=== PATIENT | male | born 1950 | race Caucasian/White ===

== ENCOUNTER 2018-01-10 03:19 | Inpatient (IN) | payer OTHER ==
[~2018-01-10] VITALS: Ht 170.2 cm; Wt 68.9 kg
[~2018-01-10 03:19] MED LIST: AMLODIPINE BESYL5 M1 PO; CHILDREN'S ASPI81 M1 PO; DIAZEPAM5 M1 PO; DICLOFENAC SODI75 M3 PO; FINASTERIDE5 M1 PO; IBUPROFEN800 M1 PO; KEFLEX500 MG PO; LOPRESSOR50 M1 PO; METHOCARBAMOL500 M1 PO; MULTIPLE VITAM1 EAC2 PO; OMEGA-3 FISH O1 EAC4 PO; PERCOCET 325 MG1 TAB PO; ROBAXIN500 M1 PO; TRAMADOL HCL50 M1 PO; ULTRAM50 M1 PO; VALIUM5 M2 PO; VITAMIN D2000 UNIT PO; ZOCOR20 M1 PO
--- NOTE | 2018-01-10 03:59 | ED GENERAL ADULT ---
See Addendum History of Present Illness General Chief Complaint: Upper Respiratory Sx/Fever Stated Complaint: DIFF BREATHING, COUGH FORFEW DAYS Source: patient, family Exam Limitations: no limitations, unable to give history Vital Signs & Intake/Output Vital Signs & Intake/Output Vital Signs Date Time Temp Pulse Resp B/P B/P Pulse O2 O2 Flow FiO2 Mean Ox Delivery Rate 01/10 0507 93 Nasal 2.0L Cannula 01/10 0459 96 Nasal 2.0L Cannula 01/10 0356 152/88 01/10 0351 99.9 117 18 89 Room Air Allergies Coded Allergies: No Known Allergies (01/10/18) Reconcile Medications Amlodipine Besylate 5 MG TABLET 1 TAB PO DAILY HEART/BP (Reported) Aspirin (Children's Aspirin) 81 MG TAB.CHEW 1 TAB PO DAILY HEART HEALTH ( Reported) Cholecalciferol (Vitamin D3) (Vitamin D) 2,000 UNIT CAPSULE 1 CAP PO DAILY SUPPLEMENT (Reported) Diazepam 5 MG TABLET 1 TAB PO AD PRN MUSCLE SPASMS (Reported) Finasteride 5 MG TABLET 1 TAB PO DAILY PROSTATE (Reported) Ibuprofen 800 MG TABLET 1 TAB PO TID PAIN/INFLAMMATION (Reported) Methocarbamol 500 MG TABLET 1 TAB PO TID PRN MUSCLE SPASMS (Reported) Metoprolol Tartrate (Lopressor) 50 MG TABLET 1 TAB PO BID HEART/BP (Reported) Multivitamin (Multiple Vitamins) 1 EACH TABLET 1 TAB PO DAILY VITAMIN SUPPORT (Reported) [place]-3S/Dha/Epa/Fish Oil ([place]-3 Fish Oil 1,000 MG Sfgl) 300-1,000MG CAPSULE 1 CAP PO DAILY SUPPLEMENT (Reported) Simvastatin (Zocor*) 20 MG TABLET 1 TAB PO QPM CHOLESTEROL (Reported) Tramadol HCl 50 MG TABLET 1 TAB PO AD PRN PAIN (Reported) Triage Note: TRIAGE: PATIENT TO ER FROM HOME C/O COUGH X FEW DAYS, INC W/ SOB TONIGHT. PATIENT TEMP 99.9 IN TRIAGE. REPORTS ACHING IN SHOULDER AND NECK THOUGH REPORTS "I'M SUPOSSED TO HAVE MY SHOULDERS REPLACED." PLACED ON 2LNC D/T RA O2: 89% W/ GOOD PLEATH. Triage Nurses Notes Reviewed? yes Onset: Gradual Duration: day(s): Timing: recent history Injury Environment: home Severity: moderate Modifying Factors: Improves With: rest. Associated Symptoms: cough HPI: 67 yo gentleman, long time smoker, h/o djd, presents with 3 days of cough, wheezing, phlegm, shortness of breath. No chest pain, lower extremity swelling, fever, chills. "But a lot of sputum is coming up." Past History Travel History Traveled to [place] past 21 day No Medical History Any Pertinent Medical History? 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 No Review of Systems Review of Systems Constitutional: Reports: no symptoms. EENTM: Reports: no symptoms. Respiratory: Reports: no symptoms. Cardiovascular: Reports: no symptoms. GI: Reports: no symptoms. Genitourinary: Reports: no symptoms. Musculoskeletal: Reports: no symptoms. Skin: Reports: no symptoms. Neurological/Psychological: Reports: no symptoms. Hematologic/Endocrine: Reports: no symptoms. Immunologic/Allergic: Reports: no symptoms. All Other Systems: Reviewed and Negative Physical Exam Physical Exam General Appearance: well developed/nourished, mild distress Head: atraumatic, normal appearance Eyes: Bilateral: normal appearance. Ears, Nose, Throat: normal pharynx, normal ENT inspection Neck: normal inspection, supple, full range of motion Respiratory: normal breath sounds, rhonchi, wheezing Cardiovascular: regular rate/rhythm Gastrointestinal: normal bowel sounds, soft, non-tender Back: normal inspection, normal range of motion Extremities: normal inspection, normal capillary refill, normal range of motion, no edema Neurologic/Psych: no motor/sensory deficits, awake, alert, oriented x 3 Skin: intact, normal color, warm/dry Core Measures ACS in differential dx? No CVA/TIA Diagnosis: No Sepsis Present: No Sepsis Focused Exam Completed? No Progress Differential Diagnoses I considered the following diagnoses in my evaluation of the patient: copd vs pneumonia vs influenza vs chf. Plan of Care: Orders Procedure Date/time Status Heart Healthy Diet 01/10 B Active Saline Lock 01/10 543 Active Misc Message 01/10 543 Active ED Holding Orders 01/10 543 Active Admit to inpatient 01/10 543 Active Vital Signs 01/10 543 Active Code Status 01/10 543 Active URINALYSIS 01/10 510 Active BLOOD CULTURE 01/10 410 Active BLOOD CULTURE 01/10 409 Active RAPID VIRAL INFLUENZA A 01/10 408 Complete TROPONIN LEVEL 01/10 408 Complete LIPASE 01/10 408 Complete HEPATIC FUNCTION PANEL 01/10 408 Complete D-DIMER 01/10 408 Complete CBC WITHOUT DIFFERENTIAL 01/10 408 Complete B-TYPE NATRIURETIC PEP (BNP) 01/10 408 Complete BASIC METABOLIC PANEL 01/10 408 Complete AMYLASE 01/10 408 Complete EKG 01/10 408 Active Current Medications Sig/Britney Start time Last Medication Dose Stop Time Status Admin Tramadol HCl 50 MG ONCE ONE 01/10 545 AC (Ultram) 01/10 546 Laboratory Tests 01/10/18 0511: Urine Color Pending, Urine Clarity Pending, Urine pH Pending, Ur Specific Girard Pending, Urine Protein Pending, Urine Ketones Pending, Urine Nitrite Pending, Urine Bilirubin Pending, Urine Urobilinogen Pending, Ur Leukocyte Esterase Pending, Ur Microscopic SEDIMENT EXAMINED, Urine RBC Pending, Urine Hemoglobin Pending, Urine Glucose Pending 01/10/18 0426: Anion Gap 9, Estimated GFR > 60, BUN/Creatinine Ratio 22.9, Glucose 112 H, Calcium 9.1, Total Bilirubin 0.4, Direct Bilirubin 0.3, AST 92 H, ALT 126 H, Alkaline Phosphatase 128 H, Troponin I < 0.01, Yhf-Q-Lihdametsma Pept 310 H, Total Protein 6.5, Albumin 3.5, Amylase 68, Lipase 234, D-Dimer High Sensitivty 329 H, CBC w Diff NO MAN DIFF REQ, RBC 4.76, MCV 86.8, MCH 28.4, MCHC 32.7 L, RDW 16.4 H, MPV 6.7 L, Gran % 88.0 H, Lymphocytes % 4.6 L, Monocytes % 6.6, Eosinophils % 0.7, Basophils % 0.1, Absolute Granulocytes 6.8 H, Absolute Lymphocytes 0.4 L, Absolute Monocytes 0.5, Absolute Eosinophils 0.1, Absolute Basophils 0 Microbiology 01/10 448 BLOOD: Blood Culture - RECD 01/10 430 NASOPHARYN: Influenza Virus A & B Rapid Smear - COMP 01/10 426 BLOOD: Blood Culture - RECD Diagnostic Imaging: Viewed by Me: Radiology Read. Discussed w/RAD: Radiology Read. CXR Impression: PATIENT: JOSUE STEWARD PRESENT AGE: 67 PATIENT ACCOUNT NO: [id number] : 48 LOCATION: [facility] [place] ORDERING PHYSICIAN: Shahzad Elizabeth MD SERVICE DATE: 01/10/18 EXAM TYPE: RAD - XRY- PORTABLE CHEST XRAY EXAMINATION: XR PORTABLE CHEST CLINICAL INFORMATION: Dyspnea COMPARISON: 07/31/2017 TECHNIQUE: Portable frontal view of the chest was obtained. FINDINGS: Lung volumes are symmetric. There is subtle hazy opacity at the right lung base which appears new from prior. No left lung consolidation is seen. No evidence of pneumothorax, pleural effusion, or pulmonary edema. The cardiomediastinal contour is unremarkable. Bilateral humeral head anchors are noted. Fusion hardware is present in the upper thoracic spine. IMPRESSION: Subtle hazy right basilar opacity may reflect developing consolidation. Consider short-term radiographic follow-up. DICTATED BY: Branden Bowman MD DATE/TIME DICTATED:01/10/18446 HATCHERY EMPLOYEE:NICHOLAS DATE/TIME TRANSCRIBED:446 CONFIDENTIAL, DO NOT COPY WITHOUT APPROPRIATE AUTHORIZATION. < Electronically signed in Other Vendor System> SIGNED BY: Branden Bowman MD 01/10/18452 Initial ED EKG: sinus tach, rbbb, no acute change from prior. Departure Departure Disposition: STILL A PATIENT Condition: Stable Clinical Impression Primary Impression: Pneumonia Secondary Impressions: Sepsis Referrals: Wayne GONZALES,Rinku Morrissey (PCP/Family) Departure Forms: Customer Survey General Discharge Information Admission Note Spoke With: Aki Fletcher MD Documentation of Exam: Documentation of any treatments & extenuating circumstances including Concerns Regarding Discharge (functional status, medication knowledge or non-compliance, living conditions, etc.) that warrant an admission rather than observation: Pt with hypoxia to 89%, wheezing, dyspneic on exam, evidence of pneumonia on cxr , with negative trop and dimer... pt merits 02 support, iv abx, serial nebs. would consider pulm consult. Critical Care Note Critical Care Note Critical Care Time: 30-74 min
[2018-01-10 04:44] LABS: ABSOLUTE BASOPHIL COUNT 0 /CUMM (0.0-0.2); ABSOLUTE EOSINOPHIL COUNT 0.1 /CUMM (0.0-0.7); ABSOLUTE GRANULOCYTE CT 6.8 /CUMM (1.4-6.5); ABSOLUTE LYMPH COUNT 0.4 /CUMM (1.2-3.4); ABSOLUTE MONOCYTE COUNT 0.5 /CUMM (0.10-0.60); BASOPHIL % 0.1 % (0.0-2.0); EOSINOPHIL % 0.7 % (0-5); HEMATOCRIT 41.3 % (42-52); MEAN CORPUSCULAR HGB 28.4 PG (27.0-31.0); MEAN CORPUSCULAR HGB CONC 32.7 G/DL (33.0-37.0); MEAN CORPUSCULAR VOLUME 86.8 FL (80.0-94.0); MEAN PLATELET VOLUME 6.7 FL (7.4-10.4); RBC DISTRIBUTION WIDTH 16.4 % (11.5-14.5); RED BLOOD CELL CT 4.76 /CUMM (4.70-6.10); WHITE BLOOD CELL COUNT 7.7 /CUMM (4.8-10.8)
--- NOTE | 2018-01-10 04:53 | RADIOLOGY REPORT ---
EXAMINATION: XR PORTABLE CHEST CLINICAL INFORMATION: Dyspnea COMPARISON: 07/31/2017 TECHNIQUE: Portable frontal view of the chest was obtained. FINDINGS: Lung volumes are symmetric. There is subtle hazy opacity at the right lung base which appears new from prior. No left lung consolidation is seen. No evidence of pneumothorax, pleural effusion, or pulmonary edema. The cardiomediastinal contour is unremarkable. Bilateral humeral head anchors are noted. Fusion hardware is present in the upper thoracic spine. IMPRESSION: Subtle hazy right basilar opacity may reflect developing consolidation. Consider short-term radiographic follow-up.
[2018-01-10 05:05] LABS: PLATELET COUNT 343 /CUMM (130-400)
--- NOTE | 2018-01-10 07:33 | History & Physical ---
Ashley GONZALES,[facility] 01/10/18 0733: General Information and HPI MD Statement: I have seen and personally examined JOSUE DALAL and documented this H&P. The patient is a 67 year old M who presented with a patient stated chief complaint of [SEVERE COUGH]. Source of Information: patient, family, old records Exam Limitations: no limitations History of Present Illness: Mr. Dalal 67 year old male with past medical history significant for smoking 50 PPD, hypertension, hyperlipidemia, carotid artery disease no previous stents, multiple vertebral disc herniation status post laminectomies, osteoarthritis who presented to ED early this morning chief complaint of severe of cough. History was obtained from the patient and at bedside. He reported history of productive cough "nasty cough" for the last couple of days, sputum is clear to yellow, early this morning he had severe cough and couldn't sleep, his brought him to ED for evaluation. Patient reported shortness of breath on exertion however was not the main reason for him visiting the ED. Denied any symptoms of URI except chronic nasal congestion. Denied chest pain, palpitation, abdominal pain, nausea, vomiting, diarrhea or constipation, fever or chills, weakness or body ache, orthopnea or paroxysmal nocturnal dyspnea. Denied any dizziness, blurred vision, lower extremity swelling. reported history of whight loss, and choking while eating. Patient has no history of sick contact. He received flu vaccine and questionable pneumonia vaccine. Patient and his are smoker all of their life, they tried quit smoking multiple times before but never successful. Denied any alcohol consumption or drug illicit. He only follow with primary care physician and orthopedic surgeon for osteoarthritis. Allergies/Medications Allergies: Coded Allergies: No Known Allergies (01/10/18) Home Med list Amlodipine Besylate 5 MG TABLET 1 TAB PO DAILY HEART/BP (Reported) Aspirin (Children's Aspirin) 81 MG TAB.CHEW 1 TAB PO DAILY HEART HEALTH ( Reported) Cholecalciferol (Vitamin D3) (Vitamin D) 2,000 UNIT CAPSULE 1 CAP PO DAILY SUPPLEMENT (Reported) Diazepam 5 MG TABLET 1 TAB PO AD PRN MUSCLE SPASMS (Reported) Finasteride 5 MG TABLET 1 TAB PO DAILY PROSTATE (Reported) Ibuprofen 800 MG TABLET 1 TAB PO TID PAIN/INFLAMMATION (Reported) Methocarbamol 500 MG TABLET 1 TAB PO TID PRN MUSCLE SPASMS (Reported) Metoprolol Tartrate (Lopressor) 50 MG TABLET 1 TAB PO BID HEART/BP (Reported) Multivitamin (Multiple Vitamins) 1 EACH TABLET 1 TAB PO DAILY VITAMIN SUPPORT (Reported) [place]-3S/Dha/Epa/Fish Oil ([place]-3 Fish Oil 1,000 MG Sfgl) 300-1,000MG CAPSULE 1 CAP PO DAILY SUPPLEMENT (Reported) Simvastatin (Zocor*) 20 MG TABLET 1 TAB PO QPM CHOLESTEROL (Reported) Tramadol HCl 50 MG TABLET 1 TAB PO AD PRN PAIN (Reported) Past History Travel History Traveled to [place] past 21 day No Medical History Neurological: NONE EENT: 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 EENTM: Reports: nasal congestion. Denies: blurred vision, nasal pain. Cardiovascular: Denies: chest pain. Respiratory: Reports: cough, short of breath, sputum production. Denies: orthopnea. GI: Denies: abdominal pain, constipation. Genitourinary: Denies: hematuria. Musculoskeletal: Denies: joint swelling. Exam & Diagnostic Data Last 24 Hrs of Vital Signs/I&O Vital Signs Date Time Temp Pulse Resp B/P B/P Pulse O2 O2 Flow FiO2 Mean Ox Delivery Rate 01/10 0640 99.4 110 20 125/61 92 Nasal 3.0L Cannula 01/10 0507 93 Nasal 2.0L Cannula 01/10 0459 96 Nasal 2.0L Cannula 01/10 0356 152/88 01/10 0351 99.9 117 18 89 Room Air Intake & Output 01/10 1600 01/10 0800 01/10 0000 Intake Total 250 Output Total 500 Balance -250 Intake, IV 250 Output, Urine 500 Patient 68.946 kg Weight Weight Reported by Patient Measurement Method Physical Exam General Appearance Alert, Oriented X3, Cooperative, No Acute Distress Skin No Rashes, No Breakdown Skin Temp/Moisture Exam: Warm/Dry HEENT Atraumatic, PERRLA, EOMI, Mucous Membr. 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 Last 24 Hrs of Labs/Butch: Laboratory Tests 01/10/18 0511: Methadone Screen Pending, Barbiturate Screen Pending, Ur Phencyclidine Scrn Pending, Amphetamines Screen Pending, U Benzodiazepines Scrn Pending, Urine Cocaine Screen Pending, Urine Cannabis Screen Pending, Urinalysis LIGHT H, Urine Color STRAW, Urine Clarity CLEAR, Urine pH 6.5, Ur Specific [place] 1.020, Urine Protein NEG, Urine Ketones NEG, Urine Nitrite NEG, Urine Bilirubin NEG, Urine Urobilinogen 0.2, Ur Leukocyte Esterase TRACE H, Ur Microscopic SEDIMENT EXAMINED, Urine RBC 5-10 H, Urine WBC 1-3 H, Ur Epithelial Cells RARE, Urine Mucus FEW, Urine Hemoglobin SMALL H, Urine Glucose NEG 01/10/18 0426: Anion Gap 9, Estimated GFR > 60, BUN/Creatinine Ratio 22.9, Glucose 112 H, Calcium 9.1, Total Bilirubin 0.4, Direct Bilirubin 0.3, GGT Pending, AST 92 H, ALT 126 H, Alkaline Phosphatase 128 H, Troponin I < 0.01, Vth-F-Qqddsrydnos Pept 310 H, Total Protein 6.5, Albumin 3.5, Amylase 68, Lipase 234, TSH Pending , Free T4 Pending, PT Pending, INR Pending, APTT Pending, D-Dimer High Sensitivty 329 H, CBC w Diff NO MAN DIFF REQ, RBC 4.76, MCV 86.8, MCH 28.4, MCHC 32.7 L, RDW 16.4 H, MPV 6.7 L, Gran % 88.0 H, Lymphocytes % 4.6 L, Monocytes % 6.6, Eosinophils % 0.7, Basophils % 0.1, Absolute Granulocytes 6.8 H, Absolute Lymphocytes 0.4 L, Absolute Monocytes 0.5, Absolute Eosinophils 0.1 , Absolute Basophils 0, Hepatitis A IgM Ab Pending, Hep Bs Antigen Pending, Hep B Core IgM Ab Conf Pending, Hepatitis C Antibody Pending, HIV 1&2 Ab Western Blot Pending Microbiology 01/10 448 BLOOD: Blood Culture - RECD 01/10 430 NASOPHARYN: Influenza Virus A & B Rapid Smear - COMP 01/10 426 BLOOD: Blood Culture - RECD Diagnostic Data CXR Results IMPRESSION: Subtle hazy right basilar opacity may reflect developing consolidation. Consider short-term radiographic follow-up. Assessment/Plan Assessment: Mr. Dalal 67 year old male with past medical history significant for smoking 50 PPD, hypertension, hyperlipidemia, carotid artery disease no previous stents, multiple vertebral disc herniation status post laminectomies, osteoarthritis who presented to ED early this morning chief complaint of severe of cough. On admission temperature 99.9, pulse 117 regular, respiratory rate 18 saturating 98% on room air, blood pressure 152/88 Patient was found tachycardia and low 110s. The satting on 2 L oxygen 218 9, oxygen supplementation increased to 4 L and he continued to sat in low 90s. Patient age adjusted d-dimer is 690, obtain d-dimer is 329 Problem list -Acute hypoxic respiratory failure -Community-acquired pneumonia versus aspiration pneumonia: Given history of choking with food, and the consolidation on the base of right lung, is suspicious of aspiration pneumonia. Patient received ceftraxone and azithromycin -New onset COPD -Transaminitis -Tachycardia with persistent desaturation however negative d-dimer for age adjusted -Smoking history Plan -Admit to general medical floor -Oxygen supplementation to keep saturation above 92% -TRC -Pulmonary consultation -Given long history of smoking, never had CT chest before and with history of weight loss, consider obtain CTA to rule out PE despite negative d-dimer for persistent desaturation and tachycardia and to evaluate for any possible lung mass -Antibiotic coverage Unasyn for aspiration pneumonia -Follow-up blood culture and sputum culture -Urine Streptococcus antigen and Legionella antigen -Consider obtaining CT abdomen and pelvis with IV contrast to rule out any intra -abdominal pathology -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 COPD exacerbation 2. Pneumonia Core Measures/Misc (08/15) Acute Coronary Syndrome ACS Diagnosis: No Congestive Heart Failure Congestive Heart Failure Diagnosis No Cerebrovascular Accident CVA/TIA Diagnosis: No VTE (View Protocol) VTE Risk Factors Age>40 No Mechanical VTE Prophylaxis d/t N/A MechProphylax Ordered No VTE Pharm Prophylaxis d/t NA PharmProphylax ordered Sepsis (View protocol) Sepsis Present: No David GONZALES,[facility] 01/10/18 1106: Attending MD Review Statement Attending Statement Attending MD Statement: examined this patient, discuss w/resident/PA/MULTIMEDIA COORDINATOR, agreed w/resident/PA/MULTIMEDIA COORDINATOR, reviewed EMR data (avail), discussed with nursing, discussed with case mgmt, reviewed images, amended to note Attending Assessment/Plan: 67 y/o M chronic smoker with other pmh sig for hypertension, hyperlipidemia, carotid artery disease no previous stents, multiple vertebral disc herniation status post laminectomies, osteoarthritis, presented with very bad nasty cough. He has these symptoms from last 3 or 4 days. The cough is so severe to the point that he's not able to sleep. He gets short of breath because of this nasty cough. He produces whitish to yellowish sputum. He denies any chest pain. He also noted a few episodes of choking with solid food. He says that is only once a via not a lot. He denied any fevers or chills. He denies any sore throat as such. Vital Signs Date Time Temp Pulse Resp B/P B/P Pulse O2 O2 Flow FiO2 Mean Ox Delivery Rate 01/10 1026 97.8 93 20 135/71 92 01/10 1025 98.7 103 20 140/65 01/10 1025 98.7 103 20 140/65 01/10 0835 93 Nasal 4.0L Cannula 01/10 0814 98.7 103 20 140/65 90 Nasal 4.0L Cannula 01/10 0640 99.4 110 20 125/61 92 Nasal 3.0L Cannula 01/10 0507 93 Nasal 2.0L Cannula 01/10 0459 96 Nasal 2.0L Cannula 01/10 0356 152/88 01/10 0351 99.9 117 18 89 Room Air on exam; aox3, nad. cv; s1,s2 rrr resp; + mild crackles b/l bases. abd; soft, nt, bs+ ext; no edema Laboratory Tests 01/10 01/10 0511 0426 Chemistry Sodium (137 - 145 mmol/L) 139 Potassium (3.5 - 5.1 mmol/L) 4.4 Chloride (98 - 107 mmol/L) 102 Carbon Dioxide (22 - 30 mmol/L) 28 Anion Gap (5 - 16) 9 BUN (9 - 20 mg/dL) 16 Creatinine (0.7 - 1.2 mg/dL) 0.7 Estimated GFR (>60 ml/min) > 60 BUN/Creatinine Ratio (7 - 25 %) 22.9 Glucose (65 - 99 mg/dL) 112 H Calcium (8.4 - 10.2 mg/dL) 9.1 Total Bilirubin (0.2 - 1.3 mg/dL) 0.4 Direct Bilirubin (< 0.4 mg/dL) 0.3 GGT (15 - 73 U/L) Pending AST (17 - 59 U/L) 92 H ALT (21 - 72 U/L) 126 H Alkaline Phosphatase (< 127 U/L) 128 H Troponin I (<0.11 ng/ml) < 0.01 Qek-B-Nvspwhuhzlf Pept (<125 pg/mL) 310 H Total Protein (6.3 - 8.2 g/dL) 6.5 Albumin (3.5 - 5.0 g/dL) 3.5 Amylase (30 - 110 U/L) 68 Lipase (23 - 300 U/L) 234 TSH (0.270 - 4.200 uIU/mL) Pending Free T4 (0.78 - 2.44 ng/dL) Pending Coagulation PT (9.4 - 12.5 SEC) 11.2 INR (0.90 - 1.17) 1.07 APTT (25 - 37 SEC) 28 D-Dimer High Sensitivty (0 - 243 ng/ml) 329 H Hematology CBC w Diff NO MAN DIFF REQ WBC (4.8 - 10.8 /CUMM) 7.7 RBC (4.70 - 6.10 /CUMM) 4.76 Hgb (14.0 - 18.0 G/DL) 13.5 L Hct (42 - 52 %) 41.3 L MCV (80.0 - 94.0 FL) 86.8 MCH (27.0 - 31.0 PG) 28.4 MCHC (33.0 - 37.0 G/DL) 32.7 L RDW (11.5 - 14.5 %) 16.4 H Plt Count (130 - 400 /CUMM) 343 MPV (7.4 - 10.4 FL) 6.7 L Gran % (42.2 - 75.2 %) 88.0 H Lymphocytes % (20.5 - 51.1 %) 4.6 L Monocytes % (1.7 - 9.3 %) 6.6 Eosinophils % (0 - 5 %) 0.7 Basophils % (0.0 - 2.0 %) 0.1 Absolute Granulocytes (1.4 - 6.5 /CUMM) 6.8 H Absolute Lymphocytes (1.2 - 3.4 /CUMM) 0.4 L Absolute Monocytes (0.10 - 0.60 /CUMM) 0.5 Absolute Eosinophils (0.0 - 0.7 /CUMM) 0.1 Absolute Basophils (0.0 - 0.2 /CUMM) 0 Serology Hepatitis A IgM Ab (NONREACTIVE) NONREACTIVE Hep Bs Antigen (NONREACTIVE) NONREACTIVE Hep B Core IgM Ab Conf (NONREACTIVE) NONREACTIVE Hepatitis C Antibody (NONREACTIVE) NONREACTIVE HIV 1&2 Ab Western Blot (NONREACTIVE) NONREACTIVE Toxicology Urine Opiates Screen (>2000 NG/ML) < 100.00 Methadone Screen (>300 NG/ML) < 40 Barbiturate Screen (>200 NG/ML) < 60 Ur Phencyclidine Scrn (>25 NG/ML) 9.70 Amphetamines Screen (>1000 NG/ML) < 100 U Benzodiazepines Scrn (>200 NG/ML) > 800 H Urine Cocaine Screen (>300 NG/ML) < 50 Urine Cannabis Screen (>50 NG/ML) 22.90 Urines Urinalysis LIGHT H Urine Color (YEL,AMB,STR) STRAW Urine Clarity (CLEAR) CLEAR Urine pH (5.0 - 8.0) 6.5 Ur Specific [place] (1.001 - 1.035) 1.020 Urine Protein (NEG,<30 MG/DL) NEG Urine Ketones (NEG) NEG Urine Nitrite (NEG) NEG Urine Bilirubin (NEG) NEG Urine Urobilinogen (0.1 - 1.0 EU/dl) 0.2 Ur Leukocyte Esterase (NEG) TRACE H Ur Microscopic SEDIMENT EXAMINED Urine RBC (0 - 5 /HPF) 5-10 H Urine WBC (0 - 2 /HPF) 1-3 H Ur Epithelial Cells (NONE,FEW) RARE Urine Mucus (FEW,NONE) FEW Urine Hemoglobin (NEG) SMALL H Urine Glucose (N MG/DL) NEG CXR: IMPRESSION: Subtle hazy right basilar opacity may reflect developing consolidation. Consider short-term radiographic follow-up. CTA chest/CT abd/Pelvis IMPRESSION: 1. No evidence of pulmonary embolism. 2. Moderate pulmonary emphysema. Bronchial wall thickening in both lungs could reflect presence of active bronchitis, if in the right clinical context. Atelectasis observed in posterior aspect of each lower lobe. No bronchopneumonia or pleural effusion. 3. Mild lymphadenopathy of the right hilum and mediastinum. 4. No acute imaging findings within the abdomen or pelvis. A/P: 67 y/o M chronic smoker with other pmh sig for hypertension, hyperlipidemia , carotid artery disease no previous stents, multiple vertebral disc herniation status post laminectomies, osteoarthritis admitted with severe cough likely secondary to acute bronchitis. Also has Anbormal LFts. Chest x-ray showed possibility of pneumonia but CT chest is negative for PE and it shows evidence of active bronchitis. At this point will obtain sputum culture, urine Legionella and strep antigen. Patient will be treated with IV azithromycin. Flu swab negative. We can treat the cough symptomatically any with antitussives. Patient will be getting TRC nebs. He is not wheezing therefore systemic steroids are not needed at this time. Continue the rest of the home medications. Monitoe LFts, ABd CT shows no acute path. DVT prophylaxis: Lovenox. Patient is a full code
--- NOTE | 2018-01-10 07:52 | Event Note ---
Event Note Event Note: Subjective Patient is seen and examined this morning, lying comfortably in the bed, denies any shortness of breath palpitations and chest discomfort, he has been evaluated by speech therapist in the morning cleared him for regular diet. Problem list Acute bacterial bronchitis with history of COPD History of hypertensionh and hyperlipidemia History of carotid artery disease no previous stents History of multiple vertebral disc herniation status post laminectomies and osteoarthritis plan Acute bacterial bronchitis with history of COPD Continue to monitor patient on [facility] floor * IV antibiotics have been discontinued we will continue with by mouth azithromycin for total of 5 days for bacterial bronchitis(EKG done today showed QTC of 438) * Continue TRC nebs * Follow-up sputum culture, urine Legionella and strep antigen. * Patient is currently not wheezing will hold off any steroids for now continue home inhalers. Continue rest of the medications DVT prophylaxis: Lovenox.
[2018-01-10 08:27] LABS: PT 11.2 SEC (9.4-12.5); PTT 28 SEC (25-37)
--- NOTE | 2018-01-10 09:59 | CT SCAN REPORT ---
EXAMINATION: CT ANGIOGRAM OF THE CHEST WITH CONTRAST (CT PULMONARY ANGIOGRAM FOR PE) CT ABDOMEN AND PELVIS WITH IV CONTRAST CLINICAL INFORMATION: Shortness of breath. Desaturation. Evaluate for pulmonary embolism. Liver lesion. COMPARISON: CXR from 01/10/2018. Renal ultrasound from 05/07/2017. TECHNIQUE: Prior to contrast administration, noncontrast localization images were obtained. Subsequently, multidetector volumetric imaging was performed from the thoracic inlet to below the diaphragms following the administration of 125 mL Optiray 350 intravenous contrast. No contrast reaction reported. Sagittal, coronal, and MIP oblique sagittal reformatted images were obtained on the CT workstation, uploaded to PACS, and reviewed. In addition, postcontrast multidetector CT images of the abdomen and pelvis were obtained. DLP: Total exam dose-length product 799 mGy-cm FINDINGS: CHEST: QUALITY OF STUDY/CONTRAST BOLUS: Satisfactory. PULMONARY ARTERIES: The pulmonary artery trunk is 2.5 cm in transverse diameter. Pulmonary arteries are normal in size. No embolic filling defects are identified within the main, lobar or segmental vessels. THORACIC AORTA: There is atherosclerotic calcification of the thoracic aorta without aneurysm or dissection. The mildly dilated aortic root is 4.3 cm. At the level of the right pulmonary artery, the ascending thoracic aorta is 3.4 cm transverse, 3.2 cm AP. LUNGS AND PLEURA: Trachea and mainstem bronchi are widely patent and normal in caliber. Secretions along the wall of the bronchus intermedius. Segmental and subsegmental bronchi appear thickened. Scattered endobronchial secretions. Moderate centrilobular emphysema. The small, 0.3 cm opacity along the right minor fissure is compatible with a perifissural lymph node (image 241, series 2). Small perifissural lymph node also observed along the right major fissure (image 2038, series 2). The nodular focus measuring 0.4 cm craniocaudal along the minor fissure is compatible with a perifissural lymph node (sagittal reformatted image 82 of 105). Subsegmental atelectasis within the posterior right and left lower lobe. 0.4 cm calcified granuloma within the left lower lobe (image 318, series 2). No suspicious nodule, mass or pleural effusion. CARDIOVASCULAR: Mild atherosclerotic calcification of coronary arteries. The heart size is normal. Mild wall hypertrophy of the left ventricle. No evidence of inward bowing of the interventricular septum. No pericardial effusion. MEDIASTINUM: The esophagus has normal wall thickness. The visualized portion of the thyroid gland is unremarkable. No mediastinal mass. LYMPHATICS: No axillary lymphadenopathy. The largest, mildly enlarged right hilar lymph node is 1.2 cm short axis dimension (image 422, series 2). The paratracheal lymph nodes are < 1 cm short axis dimension. A precarinal lymph node is 1.1 cm AP and subcarinal lymph node 1.2 cm AP. CHEST WALL/BONES: Status post discectomy and spinal fusion at C7-T1 level. Thoracic vertebra have well preserved height and alignment. Chondrocalcinosis of the mildly degenerated thoracic spine. Old fracture nonunion of left anterior third rib. Small exostosis/osteochondroma of posterior right ninth rib. No aggressive osseous lesions. ABDOMEN AND PELVIS: HEPATOBILIARY: Liver has normal size and contour. Within hepatic segments and VII, there is a visible venous communication between the right portal vein and an inferior right hepatic vein. No evidence of liver mass or intrahepatic bile duct dilatation. Gallbladder is unremarkable. PANCREAS: Unremarkable. SPLEEN: Unremarkable. ADRENAL GLANDS: Unremarkable. KIDNEYS, URETERS, BLADDER: Kidneys are normal in size and enhance symmetrically. No nephrolithiasis or hydronephrosis. 0.8 cm simple cortical cyst at the upper pole of the right kidney. The ureters are unremarkable. Urinary bladder is underdistended. GI TRACT AND PERITONEUM: Stomach is unremarkable. Bowel loops are normal in caliber. Mild diverticulosis of the sigmoid colon without diverticulitis. No evidence of acute inflammation or obstruction along the gastrointestinal tract. No ascites or pneumoperitoneum. ABDOMINAL WALL: Unremarkable. VASCULAR: Atherosclerotic calcification of the tortuous abdominal aorta and iliac arteries without aneurysm. Inferior vena cava is normal. LYMPH NODES: Normal. PELVIC VISCERA: Prostate gland measures approximately 3.4 x 4.7 x 4 cm. No pelvic mass or free fluid. OSSEOUS STRUCTURES: Mild dextroscoliosis of the severely degenerated lumbar spine. The L4 and L5 vertebra are ankylosed. There is grade 1 degenerative anterolisthesis at T11-T12 and L1-L2. IMPRESSION: 1. No evidence of pulmonary embolism. 2. Moderate pulmonary emphysema. Bronchial wall thickening in both lungs could reflect presence of active bronchitis, if in the right clinical context. Atelectasis observed in posterior aspect of each lower lobe. No bronchopneumonia or pleural effusion. 3. Mild lymphadenopathy of the right hilum and mediastinum. 4. No acute imaging findings within the abdomen or pelvis.
[2018-01-10 15:03] VITALS: BP 138/70
[2018-01-10 21:51] VITALS: BP 112/68
[2018-01-11 06:12] VITALS: BP 146/84
--- NOTE | 2018-01-11 07:33 | PN- Housestaff ---
Subjective Follow-up For: Acute bacterial bronchitis current every day smoker, no documented COPD history History of hypertensionh and hyperlipidemia History of carotid artery disease no previous stents History of multiple vertebral disc herniation status post laminectomies and osteoarthritis Subjective: Patient is seen and examined this morning seems better, breathing and productive cough improved, still on 3 L of oxygen through nasal cannula. Denies any shortness of breath and chest discomfort. Patient desaturated to 86% on 3 L with ambulation, will continue oxygen for now. Saturations above 90-92%. Denies any nausea vomiting or abdominal discomfort .All the LFTs continued to remain on higher side will get right upper quadrant ultrasound to rule out any liver/biliary pathologies. Review of Systems Constitutional: Denies: fever. EENTM: Denies: blurred vision, visual changes, eye pain. Cardiovascular: Denies: chest pain, edema, orthopena. Respiratory: Denies: cough. Gastrointestinal: Denies: abdominal pain, bloating, constipation. Genitourinary: Denies: discharge, dysuria, hematuria. Musculoskeletal: Denies: gout, joint pain. Objective Last 24 Hrs of Vital Signs/I&O Vital Signs Date Time Temp Pulse Resp B/P B/P Pulse O2 O2 Flow FiO2 Mean Ox Delivery Rate 01/11 0921 72 142/80 01/11 0921 72 142/80 01/11 0909 92 Nasal 3.0L Cannula 01/11 0800 93 Nasal 3.0L Cannula 01/11 0612 98.1 75 20 146/84 95 01/11 0000 Nasal 3.0L Cannula 01/10 2151 98.1 97 18 112/68 94 01/10 2100 97 112/64 01/10 1656 Nasal 4.0L Cannula 01/10 1600 93 Nasal 4.0L Cannula 01/10 1503 98.0 78 18 138/70 93 Nasal 4.0L Cannula 01/10 1455 94 Nasal 4.0L Cannula Intake & Output 01/11 1600 01/11 0800 01/11 0000 Intake Total 210 600 Output Total 450 575 Balance -240 25 Intake, IV 10 Intake, Oral 200 600 Output, Urine 450 575 Physical Exam General Appearance: Alert, Oriented X3 Skin: No Rashes, No Breakdown Skin Temp/Moisture Exam: Warm/Dry HEENT: Atraumatic, PERRLA Neck: Supple, No JVD Cardiovascular: Regular Rate, Normal S1, Normal S2 Lungs: Clear to Auscultation Abdomen: Normal Bowel Sounds, Soft, No Tenderness Neurological: Normal Gait, Normal Speech, Strength at 5/5 X4 Ext Current Medications: Current Medications Sig/Britney Start time Last Medication Dose Route Stop Time Status Admin Albuterol Sulfate 3 ML BID 01/10 2200 AC 01/11 INH 0908 Amlodipine Besylate 5 MG DAILY 01/10 1000 AC 01/11 PO 0921 Aspirin 81 MG DAILY 01/10 1000 AC 01/11 PO 0921 Atorvastatin Calcium 10 MG 1700 01/10 1700 AC 01/10 PO 1623 Azithromycin 500 MG DAILY 01/11 1000 AC 01/11 PO 0921 Benzonatate 100 MG TID 01/11 0143 AC 01/11 PO 0921 Cholecalciferol 2,000 IU DAILY 01/10 1000 AC 01/11 PO 0921 Diazepam 5 MG DAILY NEEDED PRN 01/10 0845 AC PO Enoxaparin Sodium 40 MG DAILY 01/10 1000 AC 01/11 SC 0922 Finasteride 5 MG DAILY 01/10 1000 AC 01/11 PO 0921 Hydrocodone Bitart/ 1 TAB Q6P PRN 01/10 1630 AC 01/10 Acetaminophen PO 2100 Ibuprofen 600 MG Q6P PRN 01/10 0745 AC PO Methylprednisolone 40 MG Q8H 01/11 1800 AC IV Methylprednisolone 40 MG Q8 01/11 0945 DC 01/11 IV 1045 Metoprolol Tartrate 50 MG BID 01/10 1000 AC 01/11 PO 0921 Nicotine 21 MG Q24 01/10 1000 AC 01/11 TOP 0922 Tramadol HCl 50 MG Q4-6 PRN PRN 01/10 0800 DC PO Last 24 Hrs of Lab/Butch Results Last 24 Hrs of Labs/Mics: Laboratory Tests 01/11/18 0639: Anion Gap 7, Estimated GFR > 60, BUN/Creatinine Ratio 20.0, Total Bilirubin 0.2, Direct Bilirubin 0.2, GGT 131 H, AST 70 H, ALT 121 H, Alkaline Phosphatase 128 H, Total Protein 5.7 L, Albumin 3.0 L, CBC w Diff NO MAN DIFF REQ, RBC 4.33 L, MCV 87.4, MCH 29.0, MCHC 33.1, RDW 16.1 H, MPV 7.1 L, Gran % 81.4 H, Lymphocytes % 7.5 L, Monocytes % 10.9 H, Eosinophils % 0.1, Basophils % 0.1, Absolute Granulocytes 6.7 H, Absolute Lymphocytes 0.6 L, Absolute Monocytes 0.9 H, Absolute Eosinophils 0, Absolute Basophils 0 Microbiology 01/10 1540 URINE ROUT: Legionella Antigen - COMP 01/10 154 URINE ROUT: Streptococcus pneumoniae Antigen (M - COMP 01/10 1540 LOWER RESP: Respiratory Culture - CAN Cancelled: NUMBER OF SQUAMOUS CELLS INDICATES POOR QUALITY SPECIMEN 01/10 1540 LOWER RESP: Gram Stain - CAN Cancelled: NUMBER OF SQUAMOUS CELLS INDICATES POOR QUALITY SPECIMEN Assessment/Plan Assessment: Mr. Dalal 67 year old male with past medical history significant for smoking 50 PPD, hypertension, hyperlipidemia, carotid artery disease no previous stents, multiple vertebral disc herniation status post laminectomies, osteoarthritis who presented to ED early this morning chief complaint of severe of cough. On admission temperature 99.9, pulse 117 regular, respiratory rate 18 saturating 98% on room air, blood pressure 152/88 Patient was found tachycardia and low 110s. The satting on 2 L oxygen 218 9, oxygen supplementation increased to 4 L and he continued to sat in low 90s. Patient age adjusted d-dimer is 690, obtain d-dimer is 329. Problem list Acute bacterial bronchitis current every day smoker, no documented COPD history History of hypertensionh and hyperlipidemia History of carotid artery disease no previous stents History of multiple vertebral disc herniation status post laminectomies and osteoarthritis Problem list Acute bacterial bronchitis current every day smoker, no documented COPD history Transaminitis Current every day smoker plan Acute bacterial bronchitis current every day smoker, no documented COPD history Continue to monitor patient on [facility] floor * IV antibiotics have been discontinued we will continue with by mouth azithromycin for total of 5 days for bacterial bronchitis(EKG done today showed QTC of 438) * Continue TRC nebs. * Patient continues to wheeze we'll start him on IV Solu-Medrol 40 mg every 8 hours. * Patient desaturated to 86% on 3 L with ambulation, will continue oxygen for now. Saturations above 90-92%. * Follow-up sputum culture, urine Legionella and strep antigen. Transaminitis * LFTs continue to remain deranged, will obtain right upper quadrant ultrasound to rule out any liver/biliary pathology. Continue rest of the medications DVT prophylaxis: Lovenox. Problem List: 1. Bronchitis Pain Ratin Pain Location: No pain at this time Pain Goal: Remain pain free Pain Plan: NO PAIN MEDS NEEDED Tomorrow's Labs & Rationales: BEP LFTs tomorrow
[2018-01-11 08:24] LABS: ABSOLUTE BASOPHIL COUNT 0 /CUMM (0.0-0.2); ABSOLUTE EOSINOPHIL COUNT 0 /CUMM (0.0-0.7); ABSOLUTE GRANULOCYTE CT 6.7 /CUMM (1.4-6.5); ABSOLUTE LYMPH COUNT 0.6 /CUMM (1.2-3.4); ABSOLUTE MONOCYTE COUNT 0.9 /CUMM (0.10-0.60); BASOPHIL % 0.1 % (0.0-2.0); EOSINOPHIL % 0.1 % (0-5); GRANULOCYTE % 81.4 % (42.2-75.2); HEMATOCRIT 37.8 % (42-52); MEAN CORPUSCULAR HGB CONC 33.1 G/DL (33.0-37.0); MEAN CORPUSCULAR VOLUME 87.4 FL (80.0-94.0); MEAN PLATELET VOLUME 7.1 FL (7.4-10.4); PLATELET COUNT 296 /CUMM (130-400); RBC DISTRIBUTION WIDTH 16.1 % (11.5-14.5); RED BLOOD CELL CT 4.33 /CUMM (4.70-6.10); WHITE BLOOD CELL COUNT 8.3 /CUMM (4.8-10.8)
[2018-01-11 10:00] VITALS: BP 150/78
--- NOTE | 2018-01-11 11:30 | PN- Att Addend ---
Attending Addendum Attending Brief Note Patient seen and examined, still requiring significant amount of oxygen. He claims that his cough is better. He does not feel that much amount of shortness of breath. Vital Signs Date Time Temp Pulse Resp B/P B/P Pulse O2 O2 Flow FiO2 Mean Ox Delivery Rate 01/11 921 72 142/80 01/11 0921 72 142/80 01/11 0909 92 Nasal 3.0L Cannula 01/11 0800 93 Nasal 3.0L Cannula 01/11 0612 98.1 75 20 146/84 95 01/11 0000 Nasal 3.0L Cannula 01/10 2151 98.1 97 18 112/68 94 01/10 2100 97 112/64 01/10 1656 Nasal 4.0L Cannula 01/10 1600 93 Nasal 4.0L Cannula 01/10 1503 98.0 78 18 138/70 93 Nasal 4.0L Cannula 01/10 1455 94 Nasal 4.0L Cannula 01/10 1217 96.1 78 20 130/59 93 Nasal Cannula on exam; aox3, nad. cv; s1,s2, rrr resp; overall decreased bs abd; soft, nt, bs+ ext; no edema. Laboratory Tests 01/11 0639 Chemistry Sodium (137 - 145 mmol/L) 137 Potassium (3.5 - 5.1 mmol/L) 4.3 Chloride (98 - 107 mmol/L) 104 Carbon Dioxide (22 - 30 mmol/L) 27 Anion Gap (5 - 16) 7 BUN (9 - 20 mg/dL) 14 Creatinine (0.7 - 1.2 mg/dL) 0.7 Estimated GFR (>60 ml/min) > 60 BUN/Creatinine Ratio (7 - 25 %) 20.0 Total Bilirubin (0.2 - 1.3 mg/dL) 0.2 Direct Bilirubin (< 0.4 mg/dL) 0.2 GGT (15 - 73 U/L) 131 H AST (17 - 59 U/L) 70 H ALT (21 - 72 U/L) 121 H Alkaline Phosphatase (< 127 U/L) 128 H Total Protein (6.3 - 8.2 g/dL) 5.7 L Albumin (3.5 - 5.0 g/dL) 3.0 L Hematology CBC w Diff NO MAN DIFF REQ WBC (4.8 - 10.8 /CUMM) 8.3 RBC (4.70 - 6.10 /CUMM) 4.33 L Hgb (14.0 - 18.0 G/DL) 12.5 L Hct (42 - 52 %) 37.8 L MCV (80.0 - 94.0 FL) 87.4 MCH (27.0 - 31.0 PG) 29.0 MCHC (33.0 - 37.0 G/DL) 33.1 RDW (11.5 - 14.5 %) 16.1 H Plt Count (130 - 400 /CUMM) 296 MPV (7.4 - 10.4 FL) 7.1 L Gran % (42.2 - 75.2 %) 81.4 H Lymphocytes % (20.5 - 51.1 %) 7.5 L Monocytes % (1.7 - 9.3 %) 10.9 H Eosinophils % (0 - 5 %) 0.1 Basophils % (0.0 - 2.0 %) 0.1 Absolute Granulocytes (1.4 - 6.5 /CUMM) 6.7 H Absolute Lymphocytes (1.2 - 3.4 /CUMM) 0.6 L Absolute Monocytes (0.10 - 0.60 /CUMM) 0.9 H Absolute Eosinophils (0.0 - 0.7 /CUMM) 0 Absolute Basophils (0.0 - 0.2 /CUMM) 0 A/P; 67 y/o M chronic smoker with other pmh sig for hypertension, hyperlipidemia , carotid artery disease no previous stents, multiple vertebral disc herniation status post laminectomies, osteoarthritis admitted with severe cough likely secondary to acute bronchitis. Also has Anbormal LFts. Patient continues to require oxygen. We will add steroids. Continue azithromycin. Continue TRC nebs. LFTs are still abnormal. Please obtain right upper quadrant ultrasound to look for liver and daily structure. Patient otherwise denies any abdominal pain or nausea and vomiting. Continue the current medications. DVT prophylaxis: Lovenox.
--- NOTE | 2018-01-11 13:43 | Discharge Summary ---
Visit Information Visit Dates Admission Date: 01/10/18 Discharge Date: 01/15/18 Hospital Course Course Attending Physician: Ada Hernandez MD Primary Care Physician: Wayne GONZALES,Rinku Morrissey Consulting Request: Consulting Specialty: Pulmonary Disease Hospital Course: 67-year-old man with past medical history of [id number]-[id number] tobacco use, hypertension, hyperlipidemia, coronary artery disease, multiple vertebral disc herniation status post laminectomies, and osteoarthritis seen for evaluation of severe cough. He reported a several day history of moderate/severe cough reductive of yellow sputum with associated shortness of breath on exertion. Review of systems were otherwise negative. He denied any sick contacts. ED course -Vitals: Temp 99.4-99.9, HR 110-117, RR 18-20, BP 1-5-152/61-88, O2 89-96% on 2.0 L via nasal cannula -CBC: WBC 7.7, Hgb/HCT 13.5/41.3, platelet 343 -BMP: Sodium 139, potassium 4.4, chloride 102, CO2 28, urea 16, creatinine 0.7 -LFT: AST/a.l. T 92/126, ALP 128, total/direct bilirubin 0.4/0.3 -Miscellaneous: Troponin I <0.01, BNP 310, lipase 234 -CXR: Subtle hazy right basilar opacity may reflect developing congestion -CT chest/abdomen/pelvis with IV contrast: 1. No evidence of pulmonary embolism. 2. Moderate pulmonary emphysema. Bronchial wall thickening in both lungs could reflect presence of active bronchitis, if in the right clinical context. Atelectasis observed in posterior aspect of each lower lobe. No bronchopneumonia or pleural effusion. 3. Mild lymphadenopathy of the right hilum and mediastinum. 4. No acute imaging findings within the abdomen or pelvis. Problem list on admission -Acute hypoxic respiratory failure -Acute bronchitis Bronchitis -Newly diagnosed emphysema -Transaminitis -Tobacco dependence, 50 pack years Hospital course Patient was admitted to the general medicine floor for further evaluation. He was maintained on supplemental oxygen during his hospital course with total respiratory care and nebulizer treatments as needed. She received a dose of Unasyn in the ED for concern of aspiration pneumonia but was continued on ceftriaxone/azithromycin for concern of community-acquired pneumonia and possible aspiration pneumonia. Patient was given intravenous Solu-Medrol for his acute hypoxic respiratory failure and pulmonary insult was placed. She completed a 5 day total course of azithromycin as patient appeared to clinically have an acute bacterial bronchitis. He was discharged to home with supplemental oxygen and a prednisone taper. He was given prescriptions for Symbicort/Spiriva his newly diagnosed COPD. 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 He was prescribed oral Ceftin on discharge. Respiratory culture demonstrated growth of strep pneumonia sensitive to ceftriaxone as of 01/17/18. Patient's liver function tests normalized at time of discharge. Allergies: Coded Allergies: No Known Allergies (01/10/18) Significant Procedures: SERVICE DATE: 01/10/18 EXAM TYPE: RAD - XRY-PORTABLE CHEST XRAY IMPRESSION: Subtle hazy right basilar opacity may reflect developing consolidation. Consider short-term radiographic follow-up. SERVICE DATE: 01/10/18 EXAM TYPE: CAT - CT ABD & PELVIS W IV CONTRAST; CTA CHEST-PULMONARY EMBOLISM IMPRESSION: 1. No evidence of pulmonary embolism. 2. Moderate pulmonary emphysema. Bronchial wall thickening in both lungs could reflect presence of active bronchitis, if in the right clinical context. Atelectasis observed in posterior aspect of each lower lobe. No bronchopneumonia or pleural effusion. 3. Mild lymphadenopathy of the right hilum and mediastinum. 4. No acute imaging findings within the abdomen or pelvis. SERVICE DATE: 01/11/18- EXAM TYPE: US - US-LIMITED ABDOMEN IMPRESSION Unremarkable limited right upper quadrant ultrasound. Disposition Summary Disposition Principal Diagnosis: Acute hypoxic respiratory failure Acute bacterial bronchitis Additional Diagnosis: Emphysema Discharge Disposition: home health services Discharge Instructions General Discharge Information Code Status: Full Code Patient's Diet: Regular Patient's Activity: Return to full activity as tolerated Follow-Up Instructions/Appts: Take Azithromycin and Prednisone as directed, continue all your previous other medications. Follow up with your PCP Dr. Black after discharge. Inform them of your hospital stay. Ask them about having pulmonary function testing. Medications at Discharge Discharge Medications: Continue taking these medications: Simvastatin (Zocor*) 20 MG TABLET 1 Tablet ORAL Every night Comments: Last Taken:01/14/18 LIPITOR GIVEN IN HOSPITAL Time:6 PM Metoprolol Tartrate (Lopressor) 50 MG TABLET 1 Tablet ORAL TWICE DAILY Comments: Last Taken:01/15/18 Time:10 AM Aspirin (Children's Aspirin) 81 MG TAB.CHEW 1 Tablet ORAL DAILY Comments: Last Taken:01/15/18 Time:10 AM Multivitamin (Multiple Vitamins) 1 EACH TABLET 1 Tablet ORAL DAILY Comments: NOT GIVEN IN HOSPITAL [place]-3S/Dha/Epa/Fish Oil ([place]-3 Fish Oil 1,000 MG Sfgl) 300-1,000MG CAPSULE 1 Capsule ORAL DAILY Comments: NOT GIVEN IN HOSPITAL Amlodipine Besylate (Amlodipine Besylate) 5 MG TABLET 1 Tablet ORAL DAILY Qty = 90 Comments: Last Taken:01/15/18 Time:10 AM Cholecalciferol (Vitamin D3) (Vitamin D) 2,000 UNIT CAPSULE 1 Capsule ORAL DAILY Comments: Last Taken:01/15/18 Time:10 AM Finasteride (Finasteride) 5 MG TABLET 1 Tablet ORAL DAILY Qty = 90 Comments: Last Taken:01/15/18 Time:10 AM Diazepam (Diazepam) 5 MG TABLET 1 Tablet ORAL As Directed as needed for MUSCLE SPASMS Qty = 100 Comments: NOT GIVEN IN HOSPITAL Tramadol HCl (Tramadol HCl) 50 MG TABLET 1 Tablet ORAL As Directed as needed for PAIN Qty = 100 Comments: NOT GIVEN IN HOSPITAL Methocarbamol (Methocarbamol) 500 MG TABLET 1 Tablet ORAL THREE TIMES DAILY as needed for MUSCLE SPASMS Qty = 15 Comments: NOT GIVEN IN HOSPTIAL Ibuprofen (Ibuprofen) 800 MG TABLET 1 Tablet ORAL THREE TIMES DAILY Qty = 90 Comments: NOT GIVEN IN HOSPITAL Tamsulosin HCl (Flomax) 0.4 MG CAP.ER.24H 1 Capsule ORAL DAILY Comments: Last Taken:01/15/18 Time:10 AM Start taking the following new medications: Prednisone (Prednisone) 10 MG TABLET 0 ORAL TAPER Qty = 25 No Refills Instructions: DATES TABS/DAY. 01/14 5 01/15-01/16 4 01/17-01/18 3 01/19-01/20 2 01/21-01/22 1 THEN STOP Comments: Last Taken:01/15/18 50MG GIVEN Time:10 AM Cefuroxime Axetil (Cefuroxime) 250 MG TABLET 500 Milligram ORAL EVERY 12 HOURS Qty = 12 No Refills Comments: Last Taken:01/15/18 Time:10 AM Budesonide/Formoterol Fumarate (Symbicort 160-4.5 Mcg Inhaler) 160 MCG-4.5 MCG/ ACTUATION HFA.AER.AD 2 Puff Inhale through mouth TWICE DAILY Qty = 1 No Refills Tiotropium [place] (Spiriva) 18 MCG CAP.W.DEV 1 Capsule Inhale through mouth DAILY Qty = 30 No Refills Albuterol Sulfate (Proair Hfa) 90 MCG HFA.AER.AD 1-2 PUFF Inhale through mouth EVERY 4-6 HOURS as needed for LUNGS Qty = 1 No Refills Copies To: Rinku Black MD; Wayne GONZALES,Rinku Morrissey; Moshe GONZALES,Baudilio Doe
[2018-01-11 14:19] VITALS: BP 136/68
--- NOTE | 2018-01-11 15:27 | Patient Discharge Instructions ---
Discharge Instructions General Discharge Information You were seen/treated for: Acute bacterial bronchitis current every day smoker, no documented COPD history Special Instructions: Take Azithromycin and Prednisone as directed, continue all your previous other medications. Follow up with your PCP Dr. Black after discharge. Inform them of your hospital stay. Ask them about having pulmonary function testing. Diet Recommended Diet: Regular Acute Coronary Syndrome Inclusion Criteria At DC or during hospital stay patient has or had the following: ACS DIAGNOSIS No Discharge Core Measures Meds if any: Prescribed or Continued at Discharge Meds if any: NOT Prescribed or Continued at Discharge Congestive Heart Failure Inclusion Criteria At DC or during hospital stay patient has or had the following: CHF DIAGNOSIS No Discharge Core Measures Meds if any: Prescribed or Continued at Discharge Meds if any: NOT Prescribed or Continued at Discharge Cerebrovascular accident Inclusion Criteria At DC or during hospital stay patient has or had the following: CVA/TIA Diagnosis No Discharge Core Measures Meds if any: Prescribed or Continued at Discharge Meds if any: NOT Prescribed or Continued at Discharge Venous thromboembolism Inclusion Criteria VTE Diagnosis No VTE Type NONE VTE Confirmed by (Test) NONE Discharge Core Measures - Per Current guidelines, there needs to be overlap - treatment for the first 5 days of Warfarin therapy. - If discharged on Warfarin prior to 5 days of - overlap therapy, the patient will need to be - assessed for post discharge needs including - *Post discharge parental anticoagulation - *Warfarin and/or parental anticoagulation education - *Follow up date to check INR post discharge At least 5 days overlap therapy as Inpatient No Meds if any: Prescribed or Continued at Discharge Note: Overlap Therapy is Warfarin and Anticoagulant Meds if any: NOT Prescribed or Continued at Discharge
--- NOTE | 2018-01-11 21:21 | ULTRASOUND REPORT ---
EXAMINATION: ABDOMINAL ULTRASOUND LIMITED CLINICAL INFORMATION: Elevated LFTs. COMPARISON: None. TECHNIQUE: Real-time imaging of the right upper quadrant abdominal viscera. FINDINGS: PANCREAS: The visualized pancreatic head and body are normal in appearance. The remainder of the pancreas is obscured from visualization by the overlying bowel gas. LIVER: The liver is of normal size and echogenicity without focal lesions nor intrahepatic biliary ductal dilation. GALLBLADDER: Normal. The gallbladder is physiologically distended without evidence of stones, sludge, polyps, wall thickening or pericholecystic fluid. COMMON BILE DUCT: Normal in caliber measuring 0.3 cm in diameter. RIGHT KIDNEY: Normal. No hydronephrosis. No renal calculi or focal parenchymal lesions. The kidney measures 9.1 cm in maximum dimension. FREE FLUID: None. IMPRESSION: Unremarkable limited right upper quadrant ultrasound.
--- NOTE | 2018-01-12 06:24 | PN- Housestaff ---
Ary GONZALES,Aleksey 01/12/18 0623: Subjective Follow-up For: Acute bronchitis Acute hypoxic respiratory failure Possible COPD Subjective: Patient seen and examined. He is seen sitting upright in bed resting comfortably maintained on supplemental oxygen via nasal cannula. He appears to be in no acute distress. He reports feeling well and otherwise denies any shortness of breath at rest or with exertion. He admits to a persistent cough that is improving but otherwise denies any fever, chills, chest pain. Review of Systems Constitutional: Reports: see HPI. Objective Last 24 Hrs of Vital Signs/I&O Vital Signs Date Time Temp Pulse Resp B/P B/P Pulse O2 O2 Flow FiO2 Mean Ox Delivery Rate 01/12 1411 98.0 79 20 118/62 92 Nasal 3.0L Cannula 01/12 1203 82 01/12 1102 92 Nasal 3.0L Cannula 01/12 0800 Nasal 3.0L Cannula 01/12 0656 98.3 79 18 162/89 91 Nasal 3.0L Cannula 01/12 0000 Nasal 3.0L Cannula 01/11 2146 112 150/78 01/11 202 92 Nasal 3.0L Cannula 01/11 1600 94 Nasal 3.0L Cannula Intake & Output 01/12 1600 01/12 0800 01/12 0000 Intake Total 480 630 Output Total 300 Balance 480 330 Intake, IV 30 Intake, Oral 480 600 Number 3 Bowel Movements Output, Urine 300 Physical Exam General Appearance: Alert, Oriented X3, Cooperative, No Acute Distress Other Physical Findings: GEN - well developed, thin elderly man in no acute distress HEENT - NCAT, PERRL, EOMI, anicteric sclera, nasal cannula in place NECK - Supple, no JVD, trachea midline, no accessory respiratory muscle use CARD- normal s1/s2 w/o m/g/r; RRR PULM - CTA bilaterally with audible productive cough ABD - Soft, NT, ND, BS+ NEURO - Awake and alert, CN II-XII grossly intact EXT- normal pulses, no edema Current Medications: Current Medications Sig/Britney Start time Last Medication Dose Route Stop Time Status Admin Albuterol Sulfate 3 ML TID 01/12 1600 AC 01/12 INH 1410 Albuterol Sulfate 3 ML BID 01/10 2200 DC 01/11 INH 2020 Amlodipine Besylate 5 MG DAILY 01/10 1000 AC 01/12 PO 1204 Aspirin 81 MG DAILY 01/10 1000 AC 01/12 PO 1204 Atorvastatin Calcium 10 MG 1700 01/10 1700 AC 01/11 PO 1606 Azithromycin 500 MG DAILY 01/11 1000 AC 01/12 PO 1204 Benzonatate 100 MG TID 01/11 0143 AC 01/12 PO 1204 Cholecalciferol 2,000 IU DAILY 01/10 1000 AC 01/12 PO 1203 Diazepam 5 MG DAILY NEEDED PRN 01/10 0845 AC PO Enoxaparin Sodium 40 MG DAILY 01/10 1000 AC 01/12 SC 1204 Finasteride 5 MG DAILY 01/10 1000 AC 01/12 PO 1204 Hydrocodone Bitart/ 1 TAB Q6P PRN 01/10 1630 AC 01/12 Acetaminophen PO 0629 Ibuprofen 600 MG Q6P PRN 01/10 0745 AC PO Ipratropium [place] 2.5 ML TID 01/12 1600 AC 01/12 INH 1410 Methylprednisolone 40 MG Q12H 01/12 1400 AC 01/12 IV 1421 Methylprednisolone 40 MG Q8H 01/11 1800 DC 01/12 IV 0209 Metoprolol Tartrate 50 MG BID 01/10 1000 AC 01/12 PO 1203 Nicotine 21 MG Q24 01/10 1000 AC 01/12 TOP 1421 Patient Medication 1 ED ONE ONE 01/12 1145 DC Teaching ED 01/12 1146 Tamsulosin HCl 0.4 MG DAILY 01/12 1001 AC 01/12 PO 1206 Last 24 Hrs of Lab/Butch Results Last 24 Hrs of Labs/Mics: Laboratory Tests 01/12/18 0710: Anion Gap 9, Estimated GFR > 60, BUN/Creatinine Ratio 28.3 H, Total Bilirubin 0.2, Direct Bilirubin 0.2, AST 71 H, ALT 97 H, Alkaline Phosphatase 139 H, Total Protein 6.2 L, Albumin 3.4 L Microbiology 01/12 015 STOOL: Clostridium difficile Toxin A & B - COLB 01/12 157 STOOL: Stool Culture - COLB Assessment/Plan Assessment: 67 year old man with multiple medical problems significant for 50 pack year tobacco use seen for evaluation of severe cough and admitted for management of acute bronchitis. Patient desaturated to the mid 80s yesterday with ambulation for which he was started on intravenous steroids and placed on 3.0 L supplemental oxygen via nasal cannula. He is currently saturating 91% on 3.0L and remains asymptomatic at rest. Solumedrol is decreased to 40 mg every 12 hours and will possible converted to oral steroids tomorrow. RUQ US was unremarkable with LFTs remaining mildly elevated for unclear reasons. Problem list -Acute bacterial bronchitis -Probable COPD -Tobacco dependence, 50 pack year -History of hypertension and hyperlipidemia -History of carotid artery disease no previous stents -History of multiple vertebral disc herniation status post laminectomies and osteoarthritis Plan: -General Medicine -TRC with nebs PRN -Incentive spirometry -Supplemental oxygen, goal > 92%, taper as tolerated -Azithromycin 500 mg PO Daily for five days -Solumedrol decreased to 40 mg IV every 12 hours -PT evaluation -Strep / Legionella negative -Follow up cultures & sensitivites -RUQ US: unremarkable -Daily LFT -Pain control with vicodin -Regular Diet -DVT PPx: lovenox -FULL CODE Problem List: 1. Bronchitis Pain Ratin Pain Location: None Pain Goal: Remain pain free Pain Plan: See assessment Tomorrow's Labs & Rationales: CBC, BMP, LFT David GONZALES,[facility] 01/12/18 1307: Attending MD Review Statement Attending Statement Attending MD Statement: examined this patient, discuss w/resident/PA/COMPUTING CONSULTANT, agreed w/resident/PA/COMPUTING CONSULTANT, reviewed EMR data (avail), discussed with nursing, discussed with case mgmt, reviewed images, amended to note Attending Assessment/Plan: Patient seen and examined, feels okay. Still requiring significant amount of oxygen but he does not feel short of breath that much. Vital Signs Date Time Temp Pulse Resp B/P B/P Pulse O2 O2 Flow FiO2 Mean Ox Delivery Rate 01/12 1203 82 01/12 1102 92 Nasal 3.0L Cannula 01/12 0800 Nasal 3.0L Cannula 01/12 0656 98.3 79 18 162/89 91 Nasal 3.0L Cannula 01/12 0000 Nasal 3.0L Cannula 01/11 2146 112 150/78 01/11 2024 92 Nasal 3.0L Cannula 01/11 1600 94 Nasal 3.0L Cannula 01/11 1419 97.6 98 20 136/68 95 Nasal 3.0L Cannula on exam; aox3, nad. cv; s1,s2, rrr resp; mostly clear abd; soft, nt, bs+ ext; no edema. Laboratory Tests 01/12 0710 Chemistry Sodium (137 - 145 mmol/L) 137 Potassium (3.5 - 5.1 mmol/L) 4.2 Chloride (98 - 107 mmol/L) 102 Carbon Dioxide (22 - 30 mmol/L) 26 Anion Gap (5 - 16) 9 BUN (9 - 20 mg/dL) 17 Creatinine (0.7 - 1.2 mg/dL) 0.6 L Estimated GFR (>60 ml/min) > 60 BUN/Creatinine Ratio (7 - 25 %) 28.3 H Total Bilirubin (0.2 - 1.3 mg/dL) 0.2 Direct Bilirubin (< 0.4 mg/dL) 0.2 AST (17 - 59 U/L) 71 H ALT (21 - 72 U/L) 97 H Alkaline Phosphatase (< 127 U/L) 139 H Total Protein (6.3 - 8.2 g/dL) 6.2 L Albumin (3.5 - 5.0 g/dL) 3.4 L A/P; 67 y/o M chronic smoker with other pmh sig for hypertension, hyperlipidemia , carotid artery disease no previous stents, multiple vertebral disc herniation status post laminectomies, osteoarthritis admitted with severe cough likely secondary to acute bronchitis. Also has Anbormal LFts. Abdominal ultrasound shows no abnormality. Patient continues to require oxygen. We will try to taper. We will taper the steroids today. We'll keep him on IV steroids today and likely switch to oral tomorrow. Continue azithromycin. Please get physical therapy evaluation. Patient needs to get out of bed to chair. We'll start incentive Spiriva meter. Continue TRC nebs. Continue rest of the medications. DVt px; Lovenox. Pt eval.
[2018-01-12 06:56] VITALS: BP 162/89
[2018-01-12] MEDS ORDERED: FLOMAX0.4 M1 PO (10:00)
[2018-01-12 14:11] VITALS: BP 118/62
[2018-01-13 06:39] VITALS: BP 112/66
--- NOTE | 2018-01-13 07:14 | PN- Housestaff ---
Ary GONAZLES,Aleksey 01/13/18 0713: Subjective Follow-up For: Acute bronchitis Acute hypoxic respiratory failure Possible COPD Subjective: Patient seen and examined. He is seen sitting upright in bed resting comfortably enjoying his breakfast maintained on supplemental oxygen via nasal cannula. He continues to admit to a persistent productive cough of brown/yellow sputum but otherwise feels well. He denies any fever, chills, chest pain, or shortness of breath. Review of Systems Constitutional: Reports: see HPI. Objective Last 24 Hrs of Vital Signs/I&O Vital Signs Date Time Temp Pulse Resp B/P B/P Pulse O2 O2 Flow FiO2 Mean Ox Delivery Rate 01/13 0835 90 Nasal 3.0L Cannula 01/13 0639 97.3 68 20 112/66 93 Nasal 3.0L Cannula 01/13 0000 Nasal 3.0L Cannula 01/12 2126 134/60 01/12 1945 91 Nasal 3.0L Cannula 01/12 1600 Nasal 3.0L Cannula 01/12 1411 98.0 79 20 118/62 92 Nasal 3.0L Cannula 01/12 1203 82 01/12 1102 92 Nasal 3.0L Cannula Intake & Output 01/13 1600 01/13 0800 01/13 0000 Intake Total 240 240 Output Total Balance 240 240 Intake, Oral 240 240 Physical Exam General Appearance: Alert, Oriented X3, Cooperative, No Acute Distress Other Physical Findings: GEN - well developed, thin elderly man in no acute distress HEENT - NCAT, PERRL, EOMI, anicteric sclera, nasal cannula in place NECK - Supple, no JVD, trachea midline, no accessory respiratory muscle use CARD- normal s1/s2 w/o m/g/r; RRR PULM - CTA bilaterally with audible productive cough ABD - Soft, NT, ND, BS+ NEURO - Awake and alert, CN II-XII grossly intact EXT- normal pulses, no edema Current Medications: Current Medications Sig/Britney Start time Last Medication Dose Route Stop Time Status Admin Albuterol Sulfate 3 ML TID 01/12 1600 AC 01/13 INH 0829 Albuterol Sulfate 3 ML BID 01/10 2200 DC 01/11 INH 2019 Amlodipine Besylate 5 MG DAILY 01/10 1000 AC 01/12 PO 1204 Aspirin 81 MG DAILY 01/10 1000 AC 01/12 PO 1204 Atorvastatin Calcium 10 MG 1700 01/10 1700 AC 01/12 PO 1717 Azithromycin 500 MG DAILY 01/11 1000 AC 01/12 PO 1204 Benzonatate 100 MG TID 01/11 0143 AC 01/12 PO 2127 Cholecalciferol 2,000 IU DAILY 01/10 1000 AC 01/12 PO 1203 Diazepam 5 MG DAILY NEEDED PRN 01/10 0845 AC PO Enoxaparin Sodium 40 MG DAILY 01/10 1000 AC 01/12 SC 1204 Finasteride 5 MG DAILY 01/10 1000 AC 01/12 PO 1204 Hydrocodone Bitart/ 1 TAB Q6P PRN 01/10 1630 AC 01/12 Acetaminophen PO 2212 Ibuprofen 600 MG Q6P PRN 01/10 0745 AC PO Ipratropium [place] 2.5 ML TID 01/12 1600 AC 01/13 INH 0829 Methylprednisolone 40 MG Q12H 01/12 1400 AC 01/13 IV 0201 Methylprednisolone 40 MG Q8H 01/11 1800 DC 01/12 IV 0209 Metoprolol Tartrate 50 MG BID 01/10 1000 AC 01/12 PO 2126 Nicotine 21 MG Q24 01/10 1000 AC 01/12 [facility] 1421 Patient Medication 1 ED ONE ONE 01/12 1145 DC Teaching ED 01/12 1146 Tamsulosin HCl 0.4 MG DAILY 01/12 1001 AC 01/12 PO 1206 Last 24 Hrs of Lab/Butch Results Last 24 Hrs of Labs/Mics: Laboratory Tests 01/13/18 0636: Anion Gap 7, Estimated GFR > 60, BUN/Creatinine Ratio 32.9 H, Total Bilirubin 0.2, Direct Bilirubin 0.2, AST 48, ALT 78 H, Alkaline Phosphatase 109, Total Protein 5.9 L, Albumin 3.0 L, CBC w Diff Pending, WBC Pending, RBC Pending, Hgb Pending, Hct Pending, MCV Pending, MCH Pending, MCHC Pending, RDW Pending, Plt Count Pending, MPV Pending, Gran % Pending, Lymphocytes % Pending, Monocytes % Pending, Eosinophils % Pending, Basophils % Pending, Absolute Granulocytes Pending, Absolute Lymphocytes Pending, Absolute Monocytes Pending, Absolute Eosinophils Pending, Absolute Basophils Pending Assessment/Plan Assessment: 67 year old man with multiple medical problems significant for 50 pack year tobacco use seen for evaluation of severe cough and admitted for management of acute bronchitis. Patient continues to saturate in the low 90's at rest while on 3.0L supplemental oxygen via nasal cannula. He however remains without shortness of breath. Patients steroids were converted to oral prednisone this morning but are switched back to IV formulation due to oxygen saturation of 88% at rest. Spiriva and symbicort were started. LFTs have essentially normalized at time of discharge. Pulmonology consult to be placed in the morning. Problem list -Acute bacterial bronchitis -Emphysema, with probable COPD exacerbation -Acute Hypoxic Respiratory Failure, on Solumedrol -Tobacco dependence, 50 pack year -History of hypertension and hyperlipidemia -History of carotid artery disease no previous stents -History of multiple vertebral disc herniation status post laminectomies and osteoarthritis Plan: -General Medicine -TRC with nebs PRN -Incentive spirometry -Start Symbicort / Spiriva -Supplemental oxygen, goal > 92%, taper as tolerated -Azithromycin 500 mg PO Daily for five days -Solumedrol 40 mg IV every 12 hours -Consult with pulmonology -PT evaluation: Assist 1, HPT -Strep / Legionella negative -Follow up cultures & sensitivites -RUQ US: unremarkable -Pain control with vicodin -Regular Diet -DVT PPx: lovenox -FULL CODE Problem List: 1. Bronchitis Pain Ratin Pain Location: None Pain Goal: Remain pain free Pain Plan: See assessment Tomorrow's Labs & Rationales: None David GONZALES,Ada 01/13/18 1147: Attending MD Review Statement Attending Statement Attending MD Statement: examined this patient, discuss w/resident/PA/TEAM TRUCK DRIVER, agreed w/resident/PA/TEAM TRUCK DRIVER, reviewed EMR data (avail), discussed with nursing, discussed with case mgmt, reviewed images, amended to note Attending Assessment/Plan: Patient seen and examined, still remains hypoxic and requiring significant amount of O2. Vital Signs Date Time Temp Pulse Resp B/P B/P Pulse O2 O2 Flow FiO2 Mean Ox Delivery Rate 01/13 0855 68 116/68 01/13 0855 68 116/68 01/13 0855 68 116/68 01/13 0835 90 Nasal 3.0L Cannula 01/13 0800 90 Nasal 3.0L Cannula 01/13 0639 97.3 68 20 112/66 93 Nasal 3.0L Cannula 01/13 0000 Nasal 3.0L Cannula 01/126 134/60 01/12 1945 91 Nasal 3.0L Cannula 01/12 1600 Nasal 3.0L Cannula 01/12 1411 98.0 79 20 118/62 92 Nasal 3.0L Cannula 01/12 1203 82 on exam; aox3, nad. cv; s1,s2, rrr resp; overall decreased bs abd; soft, nt, bs+ ext; no edema Laboratory Tests 01/13 0636 Chemistry Sodium (137 - 145 mmol/L) 139 Potassium (3.5 - 5.1 mmol/L) 4.5 Chloride (98 - 107 mmol/L) 104 Carbon Dioxide (22 - 30 mmol/L) 29 Anion Gap (5 - 16) 7 BUN (9 - 20 mg/dL) 23 H Creatinine (0.7 - 1.2 mg/dL) 0.7 Estimated GFR (>60 ml/min) > 60 BUN/Creatinine Ratio (7 - 25 %) 32.9 H Total Bilirubin (0.2 - 1.3 mg/dL) 0.2 Direct Bilirubin (< 0.4 mg/dL) 0.2 AST (17 - 59 U/L) 48 ALT (21 - 72 U/L) 78 H Alkaline Phosphatase (< 127 U/L) 109 Total Protein (6.3 - 8.2 g/dL) 5.9 L Albumin (3.5 - 5.0 g/dL) 3.0 L Hematology CBC w Diff MAN DIFF ORDERED WBC (4.8 - 10.8 /CUMM) 10.3 RBC (4.70 - 6.10 /CUMM) 4.67 L Hgb (14.0 - 18.0 G/DL) 13.5 L Hct (42 - 52 %) 40.9 L MCV (80.0 - 94.0 FL) 87.5 MCH (27.0 - 31.0 PG) 28.9 MCHC (33.0 - 37.0 G/DL) 33.0 RDW (11.5 - 14.5 %) 15.9 H Plt Count (130 - 400 /CUMM) 293 MPV (7.4 - 10.4 FL) 7.3 L Gran % (42.2 - 75.2 %) 91.9 H Lymphocytes % (20.5 - 51.1 %) 3.3 L Monocytes % (1.7 - 9.3 %) 4.7 Eosinophils % (0 - 5 %) 0.1 Basophils % (0.0 - 2.0 %) 0 Absolute Granulocytes (1.4 - 6.5 /CUMM) 9.5 H Segmented Neutrophils (42.2 - 75.2 %) 80 H Band Neutrophils (0.0 - 5.0 %) 15 H Absolute Lymphocytes (1.2 - 3.4 /CUMM) 0.3 L Lymphocytes (20.5 - 51.1 %) 2 L Monocytes (1.7 - 9.3 %) 3 Absolute Monocytes (0.10 - 0.60 /CUMM) 0.5 Absolute Eosinophils (0.0 - 0.7 /CUMM) 0 Absolute Basophils (0.0 - 0.2 /CUMM) 0 Platelet Estimate (ADEQUATE) ADEQUATE Normocytic RBCs VERIFIED Normochromic RBCs VERIFIED A/P; 67 y/o M chronic smoker with other pmh sig for hypertension, hyperlipidemia, carotid artery disease no previous stents, multiple vertebral disc herniation status post laminectomies, osteoarthritis admitted with severe cough likely secondary to acute bronchitis. Also has Anbormal LFts. Abdominal ultrasound shows no abnormality. Patient remains significant hypoxic. He desatted to 88% on 3 L at rest. Patient currently on treatment for acute bronchitis with antibiotics, steroids and TRC nebs. We will add Symbicort and Spiriva as his CT shows significant amount of emphysema. Please consult pulmonology. We'll continue to try to taper his oxygen. Physical therapy is working with him. Patient has been getting out of bed to chair and he is using incentive spirometry. Continue other current medications. DVT px: Lovenox.
[2018-01-13] MEDS ORDERED: AZITHROMYCIN500 M3 PO (07:38)
[2018-01-13] MEDS ORDERED: PREDNISONE10 M2 PO (07:38)
[2018-01-13 08:22] LABS: ABSOLUTE BASOPHIL COUNT 0 /CUMM (0.0-0.2); ABSOLUTE EOSINOPHIL COUNT 0 /CUMM (0.0-0.7); ABSOLUTE GRANULOCYTE CT 9.5 /CUMM (1.4-6.5); ABSOLUTE LYMPH COUNT 0.3 /CUMM (1.2-3.4); ABSOLUTE MONOCYTE COUNT 0.5 /CUMM (0.10-0.60); BASOPHIL % 0 % (0.0-2.0); EOSINOPHIL % 0.1 % (0-5); GRANULOCYTE % 91.9 % (42.2-75.2); HEMATOCRIT 40.9 % (42-52); MEAN CORPUSCULAR HGB 28.9 PG (27.0-31.0); MEAN CORPUSCULAR VOLUME 87.5 FL (80.0-94.0); MEAN PLATELET VOLUME 7.3 FL (7.4-10.4); PLATELET COUNT 293 /CUMM (130-400); RBC DISTRIBUTION WIDTH 15.9 % (11.5-14.5); RED BLOOD CELL CT 4.67 /CUMM (4.70-6.10); WHITE BLOOD CELL COUNT 10.3 /CUMM (4.8-10.8)
[2018-01-13 13:35] VITALS: BP 120/72
[2018-01-13 22:05] VITALS: BP 128/68
[2018-01-14 06:39] VITALS: BP 152/84
[2018-01-14 06:41] VITALS: BP 190/68
--- NOTE | 2018-01-14 07:12 | PN- Housestaff ---
Ary GONZALES,Aleksey 01/14/18 0711: Subjective Follow-up For: Acute bronchitis Acute hypoxic respiratory failure Emphysema Subjective: Patient seen and examined. He is seen sitting upright in bed resting comfortably maintained on supplemental oxygen via nasal cannula. He appears to be in no acute distress. He reports feeling well and wishes to leave today if at all possible. He denies any subjective shortness of breath, chills, or fever. Review of Systems Constitutional: Reports: see HPI. Objective Last 24 Hrs of Vital Signs/I&O Vital Signs Date Time Temp Pulse Resp B/P B/P Pulse O2 O2 Flow FiO2 Mean Ox Delivery Rate 01/14 0858 70 148/80 01/14 0858 70 148/80 01/14 0858 70 148/80 01/14 0639 98.4 69 18 152/84 92 Nasal 2.0L Cannula 01/14 0000 Nasal 3.0L Cannula 01/14 0000 92 Nasal 2.0L Cannula 01/13 2205 98.9 86 17 128/68 92 Nasal 2.0L Cannula 01/13 2120 98.8 86 18 128/68 01/13 1922 Nasal 3.0L Cannula 01/13 1600 Nasal 3.0L Cannula 01/13 1600 92 Room Air 3.0L 01/13 1335 97.9 78 20 120/72 94 Intake & Output 01/14 1600 01/14 0800 01/14 0000 Intake Total 200 Output Total Balance 200 Intake, Oral 200 Physical Exam General Appearance: Alert, Oriented X3, Cooperative, No Acute Distress Other Physical Findings: GEN - well developed, thin elderly man in no acute distress HEENT - NCAT, PERRL, EOMI, anicteric sclera, nasal cannula in place NECK - Supple, no JVD, trachea midline, no accessory respiratory muscle use CARD- normal s1/s2 w/o m/g/r; RRR PULM - CTA bilaterally with audible productive cough ABD - Soft, NT, ND, BS+ NEURO - Awake and alert, CN II-XII grossly intact EXT- normal pulses, no edema Current Medications: Current Medications Sig/Britney Start time Last Medication Dose Route Stop Time Status Admin Albuterol Sulfate 3 ML TID 01/12 1600 AC 01/14 INH 0818 Amlodipine Besylate 5 MG DAILY 01/10 1000 AC 01/14 PO 0858 Aspirin 81 MG DAILY 01/10 1000 AC 01/14 PO 0858 Atorvastatin Calcium 10 MG 1700 01/10 1700 AC 01/13 PO 1618 Azithromycin 500 MG DAILY 01/11 1000 AC 01/14 PO 0859 Benzonatate 100 MG TID 01/11 0143 AC 01/14 PO 0859 Budesonide/ 2 PUF BID 01/13 1002 AC 01/13 Formoterol Fumarate INH 2120 Cholecalciferol 2,000 IU DAILY 01/10 1000 AC 01/14 PO 0859 Diazepam 5 MG DAILY NEEDED PRN 01/10 0845 AC PO Enoxaparin Sodium 40 MG DAILY 01/10 1000 AC 01/14 SC 0857 Finasteride 5 MG DAILY 01/10 1000 AC 01/14 PO 0858 Hydrocodone Bitart/ 1 TAB Q6P PRN 01/10 1630 AC 01/12 Acetaminophen PO 2212 Ibuprofen 600 MG Q6P PRN 01/10 0745 AC PO Ipratropium [place] 2.5 ML TID 01/12 1600 DC 01/13 INH 1358 Methylprednisolone 40 MG Q12 01/13 2200 AC 01/14 IV 0858 Metoprolol Tartrate 50 MG BID 01/10 1000 AC 01/14 PO 0858 Nicotine 21 MG Q24 01/10 1000 AC 01/14 TOP 0858 Prednisone 50 MG DAILY 01/13 1000 DC 01/13 PO 1036 Tamsulosin HCl 0.4 MG DAILY 01/12 1001 AC 01/14 PO 0858 Tiotropium [place] 1 PUF DAILY 01/13 1002 AC 01/13 INH 1232 Assessment/Plan Assessment: 67 year old man with multiple medical problems significant for 50 pack year tobacco use seen for evaluation of severe cough and admitted for management of acute bronchitis. Patients oxygen status remains the same while on 3.0L supplmental oxygen via nasal cannula. Pulmonology insurance healthcare consultant recommended transition to oral steroids and initiation ceftin for seven days. Problem list -Acute bacterial bronchitis -Emphysema, with probable COPD exacerbation -Acute Hypoxic Respiratory Failure, on Solumedrol -Tobacco dependence, 50 pack year -History of hypertension and hyperlipidemia -History of carotid artery disease no previous stents -History of multiple vertebral disc herniation status post laminectomies and osteoarthritis Plan: -General Medicine -TRC with nebs PRN -Incentive spirometry -Continue Symbicort / Spiriva, prescribe on discharge -Supplemental oxygen, goal > 92%, taper as tolerated -Azithromycin 500 mg PO Daily for five days, complete -Ceftin 500 mg PO BID for seven days, Day 1/7 -Solumedrol changed to Prednisone 50 mg, taper over 10 days -Consult with pulmonology -PT evaluation: Assist 1, HPT -Strep / Legionella negative -Follow up cultures & sensitivites -RUQ US: unremarkable -Pain control with vicodin -Regular Diet -DVT PPx: lovenox -FULL CODE -Outpatient CT Chest in several weeks Problem List: 1. Bronchitis 2. Sepsis Pain Ratin Pain Location: None Pain Goal: Pain 4 or less Pain Plan: See assessment Tomorrow's Labs & Rationales: None David GONZALES,Ada 01/14/18 0948: Attending MD Review Statement Attending Statement Attending MD Statement: examined this patient, discuss w/resident/PA/MID LEVEL CLINICIAN, agreed w/resident/PA/MID LEVEL CLINICIAN, reviewed EMR data (avail), discussed with nursing, discussed with case mgmt, reviewed images, amended to note Attending Assessment/Plan: Patient seen and examined, denies any shortness of breath. Still requiring significant amount of oxygen. Patient did well with physical therapy yesterday and ambulation oxygen saturation did drop to 84% on 3 L. We are consulting pulmonology today. Vital Signs Date Time Temp Pulse Resp B/P B/P Pulse O2 O2 Flow FiO2 Mean Ox Delivery Rate 01/14 0858 70 148/80 01/14 0858 70 148/80 01/14 0858 70 148/80 01/14 0639 98.4 69 18 152/84 92 Nasal 2.0L Cannula 01/14 0000 Nasal 3.0L Cannula 01/14 0000 92 Nasal 2.0L Cannula 01/13 2205 98.9 86 17 128/68 92 Nasal 2.0L Cannula 01/13 2120 98.8 86 18 128/68 01/13 1922 Nasal 3.0L Cannula 01/13 1600 Nasal 3.0L Cannula 01/13 1600 92 Room Air 3.0L 01/13 1335 97.9 78 20 120/72 94 on exam; aox3, nad. cv; s1,s2, rrr resp; ,mild scattered wheeze abd; soft, nt, bs+ ext; no edema. no labs. A/P; 67 y/o M chronic smoker with other pmh sig for hypertension, hyperlipidemia , carotid artery disease no previous stents, multiple vertebral disc herniation status post laminectomies, osteoarthritis admitted with severe cough likely secondary to acute bronchitis. Also has Anbormal LFts. Abdominal ultrasound shows no abnormality. Patient continues to remain hypoxic. He is continuing to desatted on ambulation on 3-4 L of oxygen. He continues to cough although he remains afebrile. We are consulting pulmonology. He has been treated with azithromycin, steroids, TRC nebs. His chest CT does not show any evidence of pneumonia but it did show bronchitis and emphysema. Question if we need to broaden antibiotic coverage. He is ruled out for pulmonary embolism. VS also added Symbicort and Spiriva. LFTs have improved and his abdominal ultrasound was negative. DVT px: Lovenox. Disposition: Still not clear, not comfortable in sending patient with this much amount of oxygen requirement and desating. He is ruled out for pulmonary embolism. VS also added Symbicort and Spiriva. LFTs have improved and his abdominal ultrasound was negative. DVT px: Lovenox. Disposition: Still not clear, not comfortable in sending patient with this much amount of oxygen requirement and desating.
--- NOTE | 2018-01-14 13:46 | Cons- Pulmonary ---
General Information and HPI Consulting Request Date of Consult: 01/14/18 Requested By: med team History of Present Illness: Mr. Dalal 67 year old male with past medical history significant for smoking 50 PPD, hypertension, hyperlipidemia, carotid artery disease no previous stents, multiple vertebral disc herniation status post laminectomies, osteoarthritis who presented to ED early this morning chief complaint of severe of cough. History was obtained from the patient and at bedside. He reported history of productive cough "nasty cough" for the last couple of days, sputum is clear to yellow, early this morning he had severe cough and couldn't sleep, his brought him to ED for evaluation. Patient reported shortness of breath on exertion however was not the main reason for him visiting the ED. Denied any symptoms of URI except chronic nasal congestion. Denied chest pain, palpitation, abdominal pain, nausea, vomiting, diarrhea or constipation, fever or chills, weakness or body ache, orthopnea or paroxysmal nocturnal dyspnea. Denied any dizziness, blurred vision, lower extremity swelling. reported history of whight loss, and choking while eating. Patient has no history of sick contact. He received flu vaccine and questionable pneumonia vaccine. Patient and his are smoker all of their life, they tried quit smoking multiple times before but never successful. Denied any alcohol consumption or drug illicit. He only follow with primary care physician and orthopedic surgeon for osteoarthritis Allergies/Medications Allergies: Coded Allergies: No Known Allergies (01/10/18) Home Med List: Amlodipine Besylate 5 MG TABLET 1 TAB PO DAILY HEART/BP (Reported) Aspirin (Children's Aspirin) 81 MG TAB.CHEW 1 TAB PO DAILY HEART HEALTH ( Reported) Azithromycin 500 MG TABLET 1 TAB PO ONCE BRONCHITIS TAKE ON 01/14/18 Cholecalciferol (Vitamin D3) (Vitamin D) 2,000 UNIT CAPSULE 1 CAP PO DAILY SUPPLEMENT (Reported) Diazepam 5 MG TABLET 1 TAB PO AD PRN MUSCLE SPASMS (Reported) Finasteride 5 MG TABLET 1 TAB PO DAILY PROSTATE (Reported) Ibuprofen 800 MG TABLET 1 TAB PO TID PAIN/INFLAMMATION (Reported) Methocarbamol 500 MG TABLET 1 TAB PO TID PRN MUSCLE SPASMS (Reported) Metoprolol Tartrate (Lopressor) 50 MG TABLET 1 TAB PO BID HEART/BP (Reported) Multivitamin (Multiple Vitamins) 1 EACH TABLET 1 TAB PO DAILY VITAMIN SUPPORT (Reported) Spencer-3S/Dha/Epa/Fish Oil (Spencer-3 Fish Oil 1,000 MG Sfgl) 300-1,000MG CAPSULE 1 CAP PO DAILY SUPPLEMENT (Reported) Prednisone 10 MG TABLET 0 PO TAPER SOB DATES TABS/DAY 01/14 5 01/15-01/16 4 01/17-01/18 3 01/19-01/20 2 01/21-01/22 1 THEN STOP Simvastatin (Zocor*) 20 MG TABLET 1 TAB PO QPM CHOLESTEROL (Reported) Tamsulosin HCl (Flomax) 0.4 MG CAP.ER.24H 1 CAP PO DAILY BPH (Reported) Tramadol HCl 50 MG TABLET 1 TAB PO AD PRN PAIN (Reported) Review of Systems Comments Constitutional: Denies: chills, fever, malaise, weakness. EENTM: Reports: nasal congestion. Denies: blurred vision, nasal pain. Cardiovascular: Denies: chest pain. Respiratory: Reports: cough, short of breath, sputum production. Denies: orthopnea. GI: Denies: abdominal pain, constipation. Genitourinary: Denies: hematuria. Musculoskeletal: Denies: joint swellin Past History Travel History Traveled to [place] past 21 day No Medical History Neurological: NONE EENT: 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 COPD Gastrointestinal: NONE Hepatic: NONE Renal: benign prost hyperplasia Musculoskeletal: chronic back pain, disk herniation Psychiatric: NONE Endocrine: NONE Blood Disorders: NONE Cancer(s): NONE CLINICAL ASST/Reproductive: NONE Surgical History Surgical History: spinal fusion Psychosocial History Services at Home: None Smoking Status: Current Everyday Smoker Exam & Diagnostic Data Last 24 Hrs of Vital Signs/I&O Vital Signs Date Time Temp Pulse Resp B/P B/P Pulse O2 O2 Flow FiO2 Mean Ox Delivery Rate 01/14 0858 70 148/80 01/14 0858 70 148/80 01/14 0858 70 148/80 01/14 0800 91 Nasal 3.0L Cannula 01/14 0800 91 Nasal 3.0L Cannula 01/14 0639 98.4 69 18 152/84 92 Nasal 2.0L Cannula 01/14 0000 Nasal 3.0L Cannula 01/14 0000 92 Nasal 2.0L Cannula 01/13 2205 98.9 86 17 128/68 92 Nasal 2.0L Cannula 01/13 2120 98.8 86 18 128/68 01/13 1922 Nasal 3.0L Cannula 01/13 1600 Nasal 3.0L Cannula 01/13 1600 92 Room Air 3.0L Intake & Output 01/14 1600 01/14 0800 01/14 0000 Intake Total 200 Output Total Balance 200 Intake, Oral 200 Last 48 Hrs of Labs/Butch: Laboratory Tests 01/14/18 1100: Pulse Ox Probe Site RI, ABG O2 Sat Calc/Yadira 82.0 L, O2 Concentration % RA, O2 Delivery Method RA 01/13/18 0636: Anion Gap 7, Estimated GFR > 60, BUN/Creatinine Ratio 32.9 H, Total Bilirubin 0.2, Direct Bilirubin 0.2, AST 48, ALT 78 H, Alkaline Phosphatase 109, Total Protein 5.9 L, Albumin 3.0 L, CBC w Diff MAN DIFF ORDERED, RBC 4.67 L, MCV 87.5, MCH 28.9, MCHC 33.0, RDW 15.9 H, MPV 7.3 L, Gran % 91.9 H, Lymphocytes % 3.3 L, Monocytes % 4.7, Eosinophils % 0.1, Basophils % 0, Absolute Granulocytes 9.5 H, Segmented Neutrophils 80 H, Band Neutrophils 15 H, Absolute Lymphocytes 0.3 L, Lymphocytes 2 L, Monocytes 3, Absolute Monocytes 0.5, Absolute Eosinophils 0, Absolute Basophils 0, Platelet Estimate ADEQUATE, Normocytic RBCs VERIFIED, Normochromic RBCs VERIFIED Assessment/Plan Impression/Plan: CHEST CT PULMONARY ARTERIES: The pulmonary artery trunk is 2.5 cm in transverse diameter. Pulmonary arteries are normal in size. No embolic filling defects are identified within the main, lobar or segmental vessels. THORACIC AORTA: There is atherosclerotic calcification of the thoracic aorta without aneurysm or dissection. The mildly dilated aortic root is 4.3 cm. At the level of the right pulmonary artery, the ascending thoracic aorta is 3.4 cm transverse, 3.2 cm AP. LUNGS AND PLEURA: Trachea and mainstem bronchi are widely patent and normal in caliber. Secretions along the wall of the bronchus intermedius. Segmental and subsegmental bronchi appear thickened. Scattered endobronchial secretions. Moderate centrilobular emphysema. The small, 0.3 cm opacity along the right minor fissure is compatible with a perifissural lymph node (image 241, series 2). Small perifissural lymph node also observed along the right major fissure (image 2038, series 2). The nodular focus measuring 0.4 cm craniocaudal along the minor fissure is compatible with a perifissural lymph node (sagittal reformatted image 82 of 105). Subsegmental atelectasis within the posterior right and left lower lobe. 0.4 cm calcified granuloma within the left lower lobe (image 318, series 2). No suspicious nodule, mass or pleural effusion. CARDIOVASCULAR: Mild atherosclerotic calcification of coronary arteries. The heart size is normal. Mild wall hypertrophy of the left ventricle. No evidence of inward bowing of the interventricular septum. No pericardial effusion. MEDIASTINUM: The esophagus has normal wall thickness. The visualized portion of the thyroid gland is unremarkable. No mediastinal mass. LYMPHATICS: No axillary lymphadenopathy. The largest, mildly enlarged right hilar lymph node is 1.2 cm short axis dimension (image 422, series 2). The paratracheal lymph nodes are < 1 cm short axis dimension. A precarinal lymph node is 1.1 cm AP and subcarinal lymph node 1.2 cm AP. CHEST WALL/BONES: Status post discectomy and spinal fusion at C7-T1 level. Thoracic vertebra have well preserved height and alignment. Chondrocalcinosis of the mildly degenerated thoracic spine. Old fracture nonunion of left anterior third rib. Small exostosis/osteochondroma of posterior right ninth rib. No aggressive osseous lesions. ABDOMEN AND PELVIS: HEPATOBILIARY: Liver has normal size and contour. Within hepatic segments and VII, there is a visible venous communication between the right portal vein and an inferior right hepatic vein. No evidence of liver mass or intrahepatic bile duct dilatation. Gallbladder is unremarkable. PANCREAS: Unremarkable. SPLEEN: Unremarkable. ADRENAL GLANDS: Unremarkable. KIDNEYS, URETERS, BLADDER: Kidneys are normal in size and enhance symmetrically. No nephrolithiasis or hydronephrosis. 0.8 cm simple cortical cyst at the upper pole of the right kidney. The ureters are unremarkable. Urinary bladder is underdistended. GI TRACT AND PERITONEUM: Stomach is unremarkable. Bowel loops are normal in caliber. Mild diverticulosis of the sigmoid colon without diverticulitis. No evidence of acute inflammation or obstruction along the gastrointestinal tract. No ascites or pneumoperitoneum. ABDOMINAL WALL: Unremarkable. VASCULAR: Atherosclerotic calcification of the tortuous abdominal aorta and iliac arteries without aneurysm. Inferior vena cava is normal. LYMPH NODES: Normal. PELVIC VISCERA: Prostate gland measures approximately 3.4 x 4.7 x 4 cm. No pelvic mass or free fluid. OSSEOUS STRUCTURES: Mild dextroscoliosis of the severely degenerated lumbar spine. The L4 and L5 vertebra are ankylosed. There is grade 1 degenerative anterolisthesis at T11-T12 and L1-L2. IMPRESSION: 1. No evidence of pulmonary embolism. 2. Moderate pulmonary emphysema. Bronchial wall thickening in both lungs could reflect presence of active bronchitis, if in the right clinical context. Atelectasis observed in posterior aspect of each lower lobe. No bronchopneumonia or pleural effusion. 3. Mild lymphadenopathy of the right hilum and mediastinum. 4. No acute imaging findings within the abdomen or pelvis. DICTATED BY: Trever Mckeon MD DATE/TIME DICTATED:01/10/18932 General Appearance Alert, Oriented X3, Cooperative, No Acute Distress Skin No Rashes, No Breakdown Skin Temp/Moisture Exam: Warm/Dry HEENT Atraumatic, PERRLA, EOMI, Mucous Membr. moist/pink Neck Supple Lymphatic no cervical lymphadenpathy Cardiovascular Regular Rate, Normal S1, Normal S2, No Murmurs Lungs Bilateral decrease it and tree Scattered basal wheeze Abdomen Normal Bowel Sounds, Soft, No Tenderness, No Hepatospenomegaly Neurological Normal Speech, Strength at 5/5 X4 Ext, Normal Tone, Sensation Intact, Cranial Nerves 3-12 NL, Reflexes 2+ Extremities No Clubbing, No Cyanosis, Normal Pulses, bilateral lower extremity + 1 pedal edema, LLE > RLL for hx of ibrahim cyst IMPRESSION 67 y/o M chronic smoker with other pmh sig for hypertension, hyperlipidemia, carotid artery disease, multiple vertebral disc herniation status post laminectomies, osteoarthritis admitted with * Acute hypoxic and prob hypercarbic resp failure due to severe copd exacerbation * Rt sided resolving pna with lymphadenopathy * Rt sided hilar and mediastinal lymphadenopathy, prob due to resolving pna (pt was on abx prior to coming to the hospital) / however other path needs to be ruled out * Severe emphysema with chronic lung disease * Severe disc djd with multiple surgeries before with restrictive lung disease aswell * Sig smoking history * COPD cachexia * HTN, Hyperlipedemia with sig PVD * Benzo dep with anxiety prob REC COnt steroids and change to po prednisone 50 and wean off in 10 days Add ceftin 500 bid for seven days and finish azithro COnt current inhaler regimen SPutum culture prob would need oxygen and a neb upon dc Needs out pt ct scan with ivc or a pet scan in few weeks Smoking cessation counselling done Reduce nicotine patch dose will follow Consult Acknowledgment - Thank you for your consult request.
[2018-01-14 15:18] VITALS: BP 140/68
[2018-01-14 21:48] VITALS: BP 152/80
[2018-01-15 07:00] VITALS: BP 156/82
--- NOTE | 2018-01-15 09:20 | PN- Housestaff ---
Pilar Patrick MD,[facility] 01/15/18 0919: Subjective Follow-up For: Acute bronchitis Acute hypoxic respiratory failure Emphysema Subjective: Patient visited today, was sitting at bedside comfortably in no acute distress, was alert and oriented. on 3.5 L NC o2. No fever or chills, improved shortness of breathing, no chest pain, no other events. Patient stable to be discharged. [place] resident Dr marr communicated with pharmacy several times regarding treanferring the medication. Patient was discharged. Review of Systems Constitutional: Reports: see HPI. Objective Last 24 Hrs of Vital Signs/I&O Vital Signs Date Time Temp Pulse Resp B/P B/P Pulse O2 O2 Flow FiO2 Mean Ox Delivery Rate 01/15 1407 98.3 88 20 160/80 93 Nasal 3.5L Cannula 01/15 0959 82 138/68 01/15 0959 82 138/68 01/15 0958 82 138/68 01/15 0914 92 Nasal 3.0L Cannula 01/15 0800 95 Nasal 3.5L Cannula 01/15 0800 93 Nasal 3.5L Cannula 01/15 0700 156/82 01/15 0625 99.2 83 20 92 01/15 0000 93 Nasal 3.5L Cannula 01/15 0000 93 Nasal 3.5L Cannula 01/14 2206 86 152/81 01/14 2148 99.2 86 20 152/80 94 Nasal 3.5L Cannula 01/14 2000 93 Nasal 3.5L Cannula 01/14 1941 93 Nasal 3.5L Cannula Intake & Output 01/15 1600 01/15 0800 01/15 0000 Intake Total 720 600 Output Total 600 475 850 Balance 120 -475 -250 Intake, Oral 720 600 Output, Urine 600 475 850 Patient 152 lb Weight Physical Exam General Appearance: Alert, Oriented X3, Cooperative, No Acute Distress Skin Temp/Moisture Exam: Warm/Dry Sepsis Skin Exam (color): Normal for Ethnicity HEENT: Atraumatic, EOMI, Mucous Membr. moist/pink Cardiovascular: Normal S1, Normal S2 Lungs: bilateral ronchi and crackles Abdomen: Soft, No Tenderness Current Medications: Current Medications Sig/Britney Start time Last Medication Dose Route Stop Time Status Admin Albuterol Sulfate 3 ML TID 01/12 1600 DCD 01/15 INH 1303 Amlodipine Besylate 5 MG DAILY 01/10 1000 DCD 01/15 PO 0959 Aspirin 81 MG DAILY 01/10 1000 DCD 01/15 PO 0958 Atorvastatin Calcium 10 MG 1700 01/10 1700 DCD 01/14 PO 1659 Benzonatate 100 MG TID 01/11 0143 DCD 01/15 PO 0959 Budesonide/ 2 PUF BID 01/13 1002 DCD 01/15 Formoterol Fumarate INH 1000 Cefuroxime Sodium 500 MG Q12 01/14 1355 DCD 01/15 PO 1001 Cholecalciferol 2,000 IU DAILY 01/10 1000 DCD 01/15 PO 0959 Diazepam 5 MG DAILY NEEDED PRN 01/10 0845 DCD PO Enoxaparin Sodium 40 MG DAILY 01/10 1000 DCD 01/15 SC 1001 Finasteride 5 MG DAILY 01/10 1000 DCD 01/15 PO 0959 Hydrocodone Bitart/ 1 TAB Q6P PRN 01/10 1630 DCD 01/12 Acetaminophen PO 2212 Ibuprofen 600 MG Q6P PRN 01/10 0745 DCD 01/15 PO 0607 Metoprolol Tartrate 50 MG BID 01/10 1000 DCD 01/15 PO 0959 Nicotine 14 MG Q24 01/15 1000 DCD 01/15 TOP 1001 Prednisone 50 MG DAILY 01/15 1000 DCD 01/15 PO 0959 Tamsulosin HCl 0.4 MG DAILY 01/12 1001 DCD 01/15 PO 0958 Tiotropium Center Line 1 PUF DAILY 01/13 1002 DCD 01/15 INH 1000 Assessment/Plan Assessment: 67 year old man with multiple medical problems significant for 50 pack year tobacco use seen for evaluation of severe cough and admitted for management of acute bronchitis. Patients oxygen status remains the same while on 3.0L supplmental oxygen via nasal cannula. Pulmonology microsoft dynamics consultant recommended transition to oral steroids and initiation ceftin for seven days. Problem list -Acute bacterial bronchitis -Emphysema, with probable COPD exacerbation -Acute Hypoxic Respiratory Failure, on Solumedrol -Tobacco dependence, 50 pack year -History of hypertension and hyperlipidemia -History of carotid artery disease no previous stents -History of multiple vertebral disc herniation status post laminectomies and osteoarthritis Plan: - stable to be discharged -TRC with nebs PRN -Incentive spirometry -Continue Symbicort / Spiriva -Supplemental oxygen, goal > 92%, taper as tolerated -Azithromycin 500 mg PO Daily for five days, complete -Ceftin 500 mg PO BID for seven days, continued before discharge -Solumedrol changed to Prednisone 50 mg, taper over 10 days -Consult with pulmonology -PT evaluation: Assist 1, HPT -Strep / Legionella negative -RUQ US: unremarkable -Pain control with vicodin -Regular Diet -DVT PPx: lovenox -FULL CODE -Outpatient CT Chest in several weeks With improvement of condition patient was discharged. Problem List: 1. Bronchitis 2. Sepsis Pain Ratin Pain Location: none Pain Goal: Pain 4 or less Pain Plan: NA Tomorrow's Labs & Rationales: Angeline York MD 01/15/18 1628: Attending MD Review Statement Attending Statement Attending MD Statement: examined this patient, discuss w/resident/PA/DEALER DEVELOPMENT MANAGER, agreed w/resident/PA/DEALER DEVELOPMENT MANAGER, reviewed EMR data (avail) Attending Assessment/Plan: Improved today per patient, breathing comfortably, excited about going home. Lung exam normal. Down to 3L NC. Patienet can be discharged home on 3L NC, Prednisone, and outpatient pulmonary follow up.
[2018-01-15 14:07] VITALS: BP 160/80
[2018-01-15] MEDS ORDERED: PREDNISONE10 M2 PO (15:11)
[2018-01-15] MEDS ORDERED: AZITHROMYCIN500 M3 PO (15:11)
[2018-01-15] MEDS ORDERED: CEFUROXIME250 M1 PO (15:57)
[2018-01-15] MEDS ORDERED: SPIRIVA18 MCG INH (16:40)
[2018-01-15] MEDS ORDERED: SYMBICORT 16010.2 GM INH (16:40)
[2018-01-15] MEDS ORDERED: PROAIR HFA8.5 GM INH (16:42)
--- NOTE | 2018-01-15 19:01 | PN- Pulmonary ---
Subjective HPI/Critical Care Issues: Much improved anxious to go home stable coughing Objective Current Medications: Current Medications Sig/Britney Start time Last Medication Dose Route Stop Time Status Admin Albuterol Sulfate 3 ML TID 01/12 1600 DCD 01/15 INH 1303 Amlodipine Besylate 5 MG DAILY 01/10 1000 DCD 01/15 PO 0959 Aspirin 81 MG DAILY 01/10 1000 DCD 01/15 PO 0958 Atorvastatin Calcium 10 MG 1700 01/10 1700 DCD 01/14 PO 1659 Benzonatate 100 MG TID 01/11 0143 DCD 01/15 PO 0959 Budesonide/ 2 PUF BID 01/13 1002 DCD 01/15 Formoterol Fumarate INH 1000 Cefuroxime Sodium 500 MG Q12 01/14 1355 DCD 01/15 PO 1001 Cholecalciferol 2,000 IU DAILY 01/10 1000 DCD 01/15 PO 0959 Diazepam 5 MG DAILY NEEDED PRN 01/10 0845 DCD PO Enoxaparin Sodium 40 MG DAILY 01/10 1000 DCD 01/15 SC 1001 Finasteride 5 MG DAILY 01/10 1000 DCD 01/15 PO 0959 Hydrocodone Bitart/ 1 TAB Q6P PRN 01/10 1630 DCD 01/12 Acetaminophen PO 2212 Ibuprofen 600 MG Q6P PRN 01/10 0745 DCD 01/15 PO 0607 Metoprolol Tartrate 50 MG BID 01/10 1000 DCD 01/15 PO 0959 Nicotine 14 MG Q24 01/15 1000 DCD 01/15 TOP 1001 Prednisone 50 MG DAILY 01/15 1000 DCD 01/15 PO 0959 Tamsulosin HCl 0.4 MG DAILY 01/12 1001 DCD 01/15 PO 0958 Tiotropium [place] 1 PUF DAILY 01/13 1002 DCD 01/15 INH 1000 Vital Signs & I&O Last 24 Hrs of Vitals and I&O: Vital Signs Date Time Temp Pulse Resp B/P B/P Pulse O2 O2 Flow FiO2 Mean Ox Delivery Rate 01/15 1407 98.3 88 20 160/80 93 Nasal 3.5L Cannula 01/15 0959 82 138/68 01/15 0959 82 138/68 01/15 0958 82 138/68 01/15 0914 92 Nasal 3.0L Cannula 01/15 0800 95 Nasal 3.5L Cannula 01/15 0800 93 Nasal 3.5L Cannula 01/15 0700 156/82 01/15 0625 99.2 83 20 92 01/15 0000 93 Nasal 3.5L Cannula 01/15 0000 93 Nasal 3.5L Cannula 01/14 2206 86 152/81 01/14 2148 99.2 86 20 152/80 94 Nasal 3.5L Cannula 01/14 2000 93 Nasal 3.5L Cannula 01/14 194 93 Nasal 3.5L Cannula Intake & Output 01/15 1600 01/15 0800 01/15 0000 Intake Total 720 600 Output Total 600 475 850 Balance 120 -475 -250 Intake, Oral 720 600 Output, Urine 600 475 850 Patient 152 lb Weight Impression/Plan Impression/Plan Impression/Plan: CHEST CT PULMONARY ARTERIES: The pulmonary artery trunk is 2.5 cm in transverse diameter. Pulmonary arteries are normal in size. No embolic filling defects are identified within the main, lobar or segmental vessels. THORACIC AORTA: There is atherosclerotic calcification of the thoracic aorta without aneurysm or dissection. The mildly dilated aortic root is 4.3 cm. At the level of the right pulmonary artery, the ascending thoracic aorta is 3.4 cm transverse, 3.2 cm AP. LUNGS AND PLEURA: Trachea and mainstem bronchi are widely patent and normal in caliber. Secretions along the wall of the bronchus intermedius. Segmental and subsegmental bronchi appear thickened. Scattered endobronchial secretions. Moderate centrilobular emphysema. The small, 0.3 cm opacity along the right minor fissure is compatible with a perifissural lymph node (image 241, series 2). Small perifissural lymph node also observed along the right major fissure (image 2038, series 2). The nodular focus measuring 0.4 cm craniocaudal along the minor fissure is compatible with a perifissural lymph node (sagittal reformatted image 82 of 105). Subsegmental atelectasis within the posterior right and left lower lobe. 0.4 cm calcified granuloma within the left lower lobe (image 318, series 2). No suspicious nodule, mass or pleural effusion. CARDIOVASCULAR: Mild atherosclerotic calcification of coronary arteries. The heart size is normal. Mild wall hypertrophy of the left ventricle. No evidence of inward bowing of the interventricular septum. No pericardial effusion. MEDIASTINUM: The esophagus has normal wall thickness. The visualized portion of the thyroid gland is unremarkable. No mediastinal mass. LYMPHATICS: No axillary lymphadenopathy. The largest, mildly enlarged right hilar lymph node is 1.2 cm short axis dimension (image 422, series 2). The paratracheal lymph nodes are < 1 cm short axis dimension. A precarinal lymph node is 1.1 cm AP and subcarinal lymph node 1.2 cm AP. CHEST WALL/BONES: Status post discectomy and spinal fusion at C7-T1 level. Thoracic vertebra have well preserved height and alignment. Chondrocalcinosis of the mildly degenerated thoracic spine. Old fracture nonunion of left anterior third rib. Small exostosis/osteochondroma of posterior right ninth rib. No aggressive osseous lesions. ABDOMEN AND PELVIS: HEPATOBILIARY: Liver has normal size and contour. Within hepatic segments and VII, there is a visible venous communication between the right portal vein and an inferior right hepatic vein. No evidence of liver mass or intrahepatic bile duct dilatation. Gallbladder is unremarkable. PANCREAS: Unremarkable. SPLEEN: Unremarkable. ADRENAL GLANDS: Unremarkable. KIDNEYS, URETERS, BLADDER: Kidneys are normal in size and enhance symmetrically. No nephrolithiasis or hydronephrosis. 0.8 cm simple cortical cyst at the upper pole of the right kidney. The ureters are unremarkable. Urinary bladder is underdistended. GI TRACT AND PERITONEUM: Stomach is unremarkable. Bowel loops are normal in caliber. Mild diverticulosis of the sigmoid colon without diverticulitis. No evidence of acute inflammation or obstruction along the gastrointestinal tract. No ascites or pneumoperitoneum. ABDOMINAL WALL: Unremarkable. VASCULAR: Atherosclerotic calcification of the tortuous abdominal aorta and iliac arteries without aneurysm. Inferior vena cava is normal. LYMPH NODES: Normal. PELVIC VISCERA: Prostate gland measures approximately 3.4 x 4.7 x 4 cm. No pelvic mass or free fluid. OSSEOUS STRUCTURES: Mild dextroscoliosis of the severely degenerated lumbar spine. The L4 and L5 vertebra are ankylosed. There is grade 1 degenerative anterolisthesis at T11-T12 and L1-L2. IMPRESSION: 1. No evidence of pulmonary embolism. 2. Moderate pulmonary emphysema. Bronchial wall thickening in both lungs could reflect presence of active bronchitis, if in the right clinical context. Atelectasis observed in posterior aspect of each lower lobe. No bronchopneumonia or pleural effusion. 3. Mild lymphadenopathy of the right hilum and mediastinum. 4. No acute imaging findings within the abdomen or pelvis. DICTATED BY: Trever Mckeon MD DATE/TIME DICTATED:01/10/18932 General Appearance Alert, Oriented X3, Cooperative, No Acute Distress Skin No Rashes, No Breakdown Skin Temp/Moisture Exam: Warm/Dry HEENT Atraumatic, PERRLA, EOMI, Mucous Membr. moist/pink Neck Supple Lymphatic no cervical lymphadenpathy Cardiovascular Regular Rate, Normal S1, Normal S2, No Murmurs Lungs Bilateral decrease it and tree Scattered basal wheeze Abdomen Normal Bowel Sounds, Soft, No Tenderness, No Hepatospenomegaly Neurological Normal Speech, Strength at 5/5 X4 Ext, Normal Tone, Sensation Intact, Cranial Nerves 3-12 NL, Reflexes 2+ Extremities No Clubbing, No Cyanosis, Normal Pulses, bilateral lower extremity + 1 pedal edema, LLE > RLL for hx of ibrahim cyst IMPRESSION 67 y/o M chronic smoker with other pmh sig for hypertension, hyperlipidemia, carotid artery disease, multiple vertebral disc herniation status post laminectomies, osteoarthritis admitted with * Resolved Acute hypoxic and prob hypercarbic resp failure due to severe copd exacerbation * Rt sided resolving pna with lymphadenopathy * Rt sided hilar and mediastinal lymphadenopathy, prob due to resolving pna (pt was on abx prior to coming to the hospital) / however other path needs to be ruled out * Severe emphysema with chronic lung disease * Severe disc djd with multiple surgeries before with restrictive lung disease aswell * Sig smoking history * COPD cachexia * HTN, Hyperlipedemia with sig PVD * Benzo dep with anxiety prob REC Prednisone taper and abx Ceftin 500 bid for seven days and finish azithro Needs out pt ct scan with ivc or a pet scan in few weeks Smoking cessation counselling done Reduce nicotine patch dose will follow as out pt and phone number given to the patient and risks of noncompliance was reiterated to the patient and
== END 2018-01-15 17:00 | disposition home health service (06) | DRG 189 ==
LOC: ERH 03:19 → ERHI 05:43 → 2NB 05:43 → ERHI 08:09 → ENRESERV 14:29 → 2NB 14:52 → ENTRNSPT 01-15 16:20 → EDTRNSPTSTS 01-15 16:33 → EDTRNSPT 01-15 16:33 → 2NB 01-15 17:00 → CMPTRNSPT 01-15 20:21
PROVIDERS: Internal Medicine Interventional Cardiology; Pediatrics; Student in an Organized Health Care Education/Training Program
DX: J96.01 Acute respiratory failure with hypoxia (principal); F13.20 Sedative, hypnotic or anxiolytic dependence, uncomplicated; J44.0 Chronic obstructive pulmonary disease with (acute) lower respiratory infection; J44.1 Chronic obstructive pulmonary disease with (acute) exacerbation; J20.8 Acute bronchitis due to other specified organisms; I10 Essential (primary) hypertension; R74.0 Nonspecific elevation of levels of transaminase and lactic acid dehydrogenase [LDH]; I25.10 Atherosclerotic heart disease of native coronary artery without angina pectoris; E78.5 Hyperlipidemia, unspecified; F17.200 Nicotine dependence, unspecified, uncomplicated; M51.26 Other intervertebral disc displacement, lumbar region; M19.90 Unspecified osteoarthritis, unspecified site; Z79.82 Long term (current) use of aspirin; R00.0 Tachycardia, unspecified; F41.9 Anxiety disorder, unspecified; N40.0 Benign prostatic hyperplasia without lower urinary tract symptoms
CPT/HCPCS: 2NBP; 36415; 36592; 71045; 74177; 80307; 81001; 82436; 87040; 87045; 87070; 87147; 87389; 87449; 87450; 87804; 87804-59; 93005; 93010; 96374; 96375; 97110-GO; 97116-GO; 99291; J0456; J0696; J1650; J2920; J2930; J3490; J7060; J7512

== ENCOUNTER 2018-03-20 20:28 | Emergency (ER) | payer OTHER ==
[~2018-03-20] VITALS: Ht 170.2 cm; Wt 74.8 kg
[~2018-03-20 20:28] MED LIST changes: +AZITHROMYCIN500 M3 PO; +CEFUROXIME250 M1 PO; +FLOMAX0.4 M1 PO; +PREDNISONE10 M2 PO; +PROAIR HFA8.5 GM INH; +SPIRIVA18 MCG INH; +SYMBICORT 16010.2 GM INH
[2018-03-20 21:22] VITALS: BP 177/93
--- NOTE | 2018-03-20 21:55 | ED UPPER/LOWER EXTREMITY COMPL ---
History of Present Illness General Chief Complaint: Lower Extremity Problems Stated Complaint: "SWELLING TO LEFT LEG/BOTH FEET" Source: patient Exam Limitations: no limitations Vital Signs & Intake/Output Vital Signs & Intake/Output Vital Signs Date Time Temp Pulse Resp B/P B/P Pulse O2 O2 Flow FiO2 Mean Ox Delivery Rate 03/205 Room Air 03/20 2122 984.0 70 18 177/93 96 Room Air Allergies Coded Allergies: No Known Allergies (01/10/18) Reconcile Medications Albuterol Sulfate (Proair Hfa) 90 MCG HFA.AER.AD 1-2 PUFF INH Q4-6 PRN LUNGS Amlodipine Besylate 5 MG TABLET 1 TAB PO DAILY HEART/BP (Reported) Aspirin (Children's Aspirin) 81 MG TAB.CHEW 1 TAB PO DAILY HEART HEALTH ( Reported) Budesonide/Formoterol Fumarate (Symbicort 160-4.5 Mcg Inhaler) 160 MCG-4.5 MCG/ ACTUATION HFA.AER.AD 2 PUF INH BID LUNGS Cefuroxime Axetil (Cefuroxime) 250 MG TABLET 500 MG PO Q12 PNA Cholecalciferol (Vitamin D3) (Vitamin D) 2,000 UNIT CAPSULE 1 CAP PO DAILY SUPPLEMENT (Reported) Diazepam 5 MG TABLET 1 TAB PO AD PRN MUSCLE SPASMS (Reported) Finasteride 5 MG TABLET 1 TAB PO DAILY PROSTATE (Reported) Furosemide (Lasix) 20 MG TABLET 1 TAB PO DAILY leg swelling Ibuprofen 800 MG TABLET 1 TAB PO TID PAIN/INFLAMMATION (Reported) Methocarbamol 500 MG TABLET 1 TAB PO TID PRN MUSCLE SPASMS (Reported) Metoprolol Tartrate (Lopressor) 50 MG TABLET 1 TAB PO BID HEART/BP (Reported) Multivitamin (Multiple Vitamins) 1 EACH TABLET 1 TAB PO DAILY VITAMIN SUPPORT (Reported) [place]-3S/Dha/Epa/Fish Oil ([place]-3 Fish Oil 1,000 MG Sfgl) 300-1,000MG CAPSULE 1 CAP PO DAILY SUPPLEMENT (Reported) Prednisone 10 MG TABLET 0 PO TAPER SOB DATES TABS/DAY. 01/14 5 01/15-01/16 4 01/17-01/18 3 01/19-01/20 2 01/21-01/22 1 THEN STOP Simvastatin (Zocor*) 20 MG TABLET 1 TAB PO QPM CHOLESTEROL (Reported) Tamsulosin HCl (Flomax) 0.4 MG CAP.ER.24H 1 CAP PO DAILY BPH (Reported) Tiotropium [place] (Spiriva) 18 MCG CAP.W.DEV 1 CAP INH DAILY LUNGS Tramadol HCl 50 MG TABLET 1 TAB PO AD PRN PAIN (Reported) Triage Note: RECEIVED 68 YO MALE WITH C/O WORSENING INTERMITTENT EDEMA TO FEET BILATERALLY AND LEFT LEG. PT CALLED PMD DR BARTON 3 WEEKS AGO AND NOTIFIED HIM AND WAS INSTRUCTED TO STOP AMLODIPINE. PT TALKED TO OFFICE 5 DAYS LATER AND INSTRUCTED TO STAY OFF AMLODIPINE. HAS NOT TAKEN IN 3 WEEKS. NO C/O CP OR SOB. PT ON O2 AT NIGHT AT 3 LPM. B/P IN TRIAGE 177/93. Triage Nurses Notes Reviewed? yes Onset: Gradual Duration: week(s): Timing: recent history Severity: mild Pain/Injury Location: Bilateral: Leg. Modifying Factors: Improves With: rest. Associated Symptoms: swelling HPI: 68 yo gentleman with several weeks of bilateral lower extremity swelling, left worse than right. He notes, "I stopped my amlodipine last week and my swelling got better... but it's still there and I don't know what to do." No recent plane flights, stasis, surgeries. He notes no pain. He is otherwise well. Past History Travel History Traveled to [place] past 21 day No Medical History Any Pertinent Medical History? 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 No Review of Systems Review of Systems Constitutional: Reports: no symptoms. EENTM: Reports: no symptoms. Respiratory: Reports: no symptoms. Cardiovascular: Reports: no symptoms. Gastrointestinal/Abdominal: Reports: no symptoms. Genitourinary: Reports: no symptoms. Musculoskeletal: Reports: no symptoms. Skin: Reports: no symptoms. Neurological/Psychological: Reports: no symptoms. Hematologic/Endocrine: Reports: no symptoms. Immunological: Reports: no symptoms. All Other Systems: Reviewed and Negative Physical Exam Physical Exam General Appearance: well developed/nourished, mild distress Head: atraumatic Eyes: Bilateral: normal appearance. Ears, Nose, Throat: normal pharynx, normal ENT inspection, hearing grossly normal Neck: normal inspection, supple Cardiovascular/Respiratory: regular rate/rhythm Back: normal inspection Skin: intact, normal color, warm/dry Lymphatic: no anterior cervical hayes Comments: bilateral lower extremities.... 1-2+ edema on left leg, 1+ edema on right. no javy's sign no sign of infection. Progress Differential Diagnosis: edema vs other... low clinical suspicion for dvt Plan of Care: discussed at length: compression stockings low salt diet 3 days of lasix pt to return tomorrow for u/s, requisition filled out and given to patient encouraged close follow up with PMD. Departure Departure Disposition: HOME OR SELF CARE Condition: Stable Clinical Impression Primary Impression: Lower extremity edema Referrals: Wayne GONZALES,Rinku Morrissey (PCP/Family) Departure Forms: Customer Survey General Discharge Information Prescriptions: Current Visit Scripts Furosemide (Lasix) 1 TAB PO DAILY #3 TAB
[2018-03-20] MEDS ORDERED: LASIX20 M1 PO (22:08)
== END 2018-03-20 22:56 ==
LOC: ERH 20:28
DX: R60.0 Localized edema (principal)

== ENCOUNTER 2018-07-04 02:11 | Inpatient (IN) | payer OTHER ==
[~2018-07-04] VITALS: Ht 170.2 cm; Wt 75.8 kg
[~2018-07-04 02:11] MED LIST changes: +LASIX20 M1 PO
[2018-07-04] MEDS ORDERED: NORVASC5 M1 PO (07:02)
--- NOTE | 2018-07-04 09:45 | Operative Report ---
Operative/Inv Procedure Report Surgery Date: 07/04/18 Name of Procedure: Left total knee arthroplasty Pre-Operative Diagnosis: Left knee primary osteoarthritis Post-Operative Diagnosis: Same Estimated Blood Loss: less than 50ml Surgeon/Acrobatic Dancer: Felicitas GONZALES,Won Kidd Anesthesia: general endotracheal tube Implants: René triathlon total knee system-size 5 femur, size 6 tibia, 9 mm cruciate retaining polyethylene, 31 patella Drains: None Specimens: Femoral, tibial, patellar bone Microbiology: Urine Tourniquet: 56 minutes Complications: None Condition: Stable Operative Indication: Patient is a 68-year-old man with a long history of left knee problems. He is diagnosed with osteoarthritis. Symptoms progressively worsened and interfere with normal activities of daily living. He underwent treatment including conservative measures including medications, activity modifications injections with minimal or short-term relief only. He wished to proceed with total knee arthroplasty. Patient had a valgus alignment with severe end-stage degenerative changes of the lateral compartment and milder changes of the patellofemoral and medial compartment. Risks benefits and expectations of the surgical procedure were discussed which included but were not limited to persistent knee pain, need for subsequent surgery, infection, DVT, injury to blood vessel or nerve, anesthesia risks. Patient did have a leg length discrepancy and it was explained to the patient that this would not change significantly with this surgical procedure except for possible gains made with improved alignment Operative/Procedure Note Note: Patient was brought to the operating room and transferred to the operating table. Once under appropriate anesthesia the left lower extremity was prepped and draped in standard fashion. Preoperative IV antibiotic's were given prophylactically. Leg was elevated exsanguinated and tourniquet was inflated to 300 mm of pressure. A standard anterior incision was made for anticipated medial parapatellar approach the knee. The incision was taken down sharply to the underlying retinaculum. A medial retinacular approach with a minimal extension into the quadriceps tendon was used to enter the knee joint. Severe degenerative changes of lateral compartment noted. Osteophytes were excised. Remnants of the lateral meniscal cartilage was excised. There was no significant remnant of the medial meniscus. The remnants of the PCL were excised. The knee was flexed after retractors were placed. I used a drill to enter the intramedullary canal for the intramedullary guide for the distal femoral cut. Cutting block was pinned in place for a 5 valgus cut. The appropriate thickness was removed. I then sized the femur using the sizing jig. It was sized to a size 5. Size 5 cutting jig was pinned in place and 4 cuts were made. These cuts were made while protecting the soft tissues. I was satisfied the preparation of the femur. I then turned my attention to the tibia. I used the external tibial alignment guide and pin the cutting block in position for a neutral cut from medial to lateral and reproducing patient's posterior slope based on preoperative template and intraoperative findings. Again the soft tissues were protected posteriorly medially and laterally. The cut was made. The tibia was incised was size 6. Remaining osteophytes were removed from the posterior aspect of the knee using curved osteotome followed by curved curet. I then did a trial reduction with the size 6 tibia size 5 femur and a 9 mm polyethylene. Full extension. The knee was stable in full extension mid flexion and full flexion to gravity. I then prepared the patella. 2 towel clips were used followed by measuring the patella and then removing the appropriate thickness and replaced with a 31 patella. 3 lug holes were drilled. Tracking was good. I then removed the trial component and marked my rotation of the tibia and drilled my 2 lug holes of the distal femur. All trial components were removed. This was followed by copious irrigation and completion of the tibial punch. All answer rotation was removed from the knee and copious irrigation the knee followed. I used the anterior chamfer bone of the distal femur to plug the intramedullary hole in the distal femur to minimize postoperative hemarthrosis and swelling. Copious irrigation of the knee followed as the cement was being mixed on the back table. Once the cement was ready was applied to the dry clean bony surface the tibia. The size 6 tibial component was impacted in place and excess cement was removed with curettes. Cement was applied to the dry clean bony surfaces of distal femur. Size 5 femur was impacted in place and excess cement was removed with curettes. Cement was applied to the dry clean bony surface the patella after the trial polyethylene was placed the knee was taken out to full extension. The size 31 patella was impacted in place and excess cement was removed. Once the cement was hardening took the knee through range of motion. Small pieces of excess cement were removed with osteotome. I was satisfied with the stability of the 9 mm cruciate retaining polyethylene. Full extension good mid flexion stability and full flexion to gravity. After copious irrigation the trial component was removed. The tibial tray was copiously irrigated I made sure there was no remaining cement fragments, bone fragments or soft tissue within the tibial tray and then I impacted the definitive size 9 mm cruciate retaining polyethylene component into place. Locking mechanism was confirmed. After copious irrigation tourniquet was deflated at 56 minutes. Hemostasis was obtained. There was the layers were then closed #1 Vicryl suture was used to close the retinacular incision and the minimal extension quadricep tendon. Subcutaneous tissues closed in 2 layers with 2-0 Vicryl and skin was closed with a running 3-0 Vicryl suture with the knee in flexion. Appropriate dressings were applied and patient was awakened and taken the recovery room in good condition. No intraoperative complications. Blood loss was 50 mL. Discharge Disposition: PACU
--- NOTE | 2018-07-04 10:47 | PN- Orthopedic ---
Subjective Subjective: POC feeling well, some pain lle. no n/v. no cp/sob. no oob yet- awaiting bed assignment upstairs. Objective Vital Signs and I&Os see emr 144/83, hr 76 gen- nad card-s1s2 pulm-ctab abd-soft nt ext- palp pedal pulses, calves soft nt bl, alps on bl. lle: lilli in place, dressing cdi. gu- zamudio in place, clear yellow urine Assessment/Plan Assessment/Plan A- POD0 sp L TKR, stable, awaiting oob/pt eval/postop meal. P- oob, pt, wbat eliquis 2.5 bid, alps reg diet as tolerated dc zamudio pod1 dc planning will dw attending Core Measures Venous Thromboembolism VTE Risk Factors Surgery No Mechanical VTE Prophylaxis d/t N/A MechProphylax Ordered No VTE Pharm Prophylaxis d/t NA PharmProphylax ordered
--- NOTE | 2018-07-04 10:52 | Patient Discharge Instructions ---
Discharge Instructions General Discharge Information You were seen/treated for: Primary osteoarthritis left knee You had these procedures: left total knee replacement Watch for these problems: Increasing pain despite the use of pain medication Increasing redness, warmth or swelling Drainage of any type from incision Inability to bear weight on operative leg Persistent nausea and vomiting Fever greater than 101.5 degrees Other wound care: Please keep wound clean and dry. No ointments or lotions of any type on or near incision. Your dressing will be changed by your nurse on the second day after your surgery. Daily dry dressing changes are recommended each day thereafter. Do not soak your wound- no tub baths/swimming. You may shower 48hr after surgery. Special Instructions: Eliquis: You are taking this medication to prevent the development of postoperative blood clots. Take as directed. Do not take aspirin while taking Eliquis. You may resume aspirin after completing course of Eliquis. Diet Continue normal diet: Yes Recommended Diet: Regular Activity Activity Limited to: Weight bear as tolerated Additional ACTIVITY Info: use assistive devices as needed Acute Coronary Syndrome Inclusion Criteria At DC or during hospital stay patient has or had the following: ACS DIAGNOSIS No Discharge Core Measures Meds if any: Prescribed or Continued at Discharge Meds if any: NOT Prescribed or Continued at Discharge Congestive Heart Failure Inclusion Criteria At DC or during hospital stay patient has or had the following: CHF DIAGNOSIS No Discharge Core Measures Meds if any: Prescribed or Continued at Discharge Meds if any: NOT Prescribed or Continued at Discharge Cerebrovascular accident Inclusion Criteria At DC or during hospital stay patient has or had the following: CVA/TIA Diagnosis No Discharge Core Measures Meds if any: Prescribed or Continued at Discharge Meds if any: NOT Prescribed or Continued at Discharge Venous thromboembolism Inclusion Criteria VTE Diagnosis No VTE Type NONE VTE Confirmed by (Test) NONE Discharge Core Measures - Per Current guidelines, there needs to be overlap - treatment for the first 5 days of Warfarin therapy. - If discharged on Warfarin prior to 5 days of - overlap therapy, the patient will need to be - assessed for post discharge needs including - *Post discharge parental anticoagulation - *Warfarin and/or parental anticoagulation education - *Follow up date to check INR post discharge At least 5 days overlap therapy as Inpatient No Meds if any: Prescribed or Continued at Discharge Note: Overlap Therapy is Warfarin and Anticoagulant Meds if any: NOT Prescribed or Continued at Discharge
--- NOTE | 2018-07-04 10:55 | Surgical Discharge Summary ---
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 Spouse Services at Home: None What is Your Primary Language? Malay Review of Systems: see H&P Hospital Course Course Attending Physician: Felicitas GONZALES,Bernabe Primary Care Physician: Rinku Black MD Hospital Course: Patient was admitted to the hospital for an elective left total knee replacement. Procedure was tolerated well and patient was transferred to a general surgical floor. Diet was advanced and tolerated. Physical therapy performed evaluation and treatment. At time of hospital discharge, vital signs were stable, neurovascular status was intact, and pain was controlled with the use of oral pain medications. Allergies: Coded Allergies: No Known Allergies (01/10/18) Significant Procedures: 07/04/18: left total knee replacement Disposition Summary Disposition Principal Diagnosis: primary osteoarthritis left knee Additional Diagnosis: same, sp left total knee replacement Discharge Disposition: home health services Discharge Instructions General Discharge Information Code Status: Full Code Patient's Diet: regular Patient's Activity: wbat Follow-Up Instructions/Appts: call to be seen 2 weeks postop Medications at Discharge Discharge Medications: Stop taking the following medications: Aspirin (Children's Aspirin) 81 MG TAB.CHEW ORAL DAILY Continue taking these medications: Simvastatin (Zocor*) 20 MG TABLET 1 Tablet ORAL Every night Comments: Last Taken:01/14/18 LIPITOR GIVEN IN HOSPITAL Time:6 PM Metoprolol Tartrate (Lopressor) 50 MG TABLET 1 Tablet ORAL TWICE DAILY Comments: Last Taken:01/15/18 Time:10 AM Multivitamin (Multiple Vitamins) 1 EACH TABLET 1 Tablet ORAL DAILY Comments: NOT GIVEN IN HOSPITAL Cholecalciferol (Vitamin D3) (Vitamin D) 2,000 UNIT CAPSULE 1 Capsule ORAL DAILY Comments: Last Taken:01/15/18 Time:10 AM Finasteride (Finasteride) 5 MG TABLET 1 Tablet ORAL DAILY Qty = 90 Comments: Last Taken:01/15/18 Time:10 AM Tiotropium [place] (Spiriva) 18 MCG CAP.W.DEV 1 Capsule Inhale through mouth DAILY Qty = 30 Albuterol Sulfate (Proair Hfa) 90 MCG HFA.AER.AD 1-2 PUFF Inhale through mouth EVERY 4-6 HOURS as needed for LUNGS Qty = 1 Furosemide (Lasix) 20 MG TABLET 1 Tablet ORAL DAILY Qty = 3 Amlodipine Besylate (Norvasc) 5 MG TABLET 1 Tablet ORAL DAILY Start taking the following new medications: Hydrocodone/Acetaminophen (Hydrocodon-Acetaminophen 5-325) 5 MG-325 MG TABLET 1-2 Tablet ORAL EVERY 4-6 HOURS NEEDED as needed for PAIN Qty = 30 No Refills Docusate Sodium (Colace) 100 MG CAPSULE 1 Capsule ORAL TWICE DAILY Qty = 14 No Refills Apixaban (Eliquis) 2.5 MG TABLET 1 Tablet ORAL TWICE DAILY Qty = 60 No Refills
[2018-07-04 11:24] VITALS: BP 131/73
[2018-07-04 14:28] VITALS: BP 120/70
[2018-07-04 16:04] VITALS: BP 132/70
[2018-07-04 18:00] VITALS: BP 138/74
[2018-07-04 22:19] VITALS: BP 130/70
[2018-07-05 01:57] VITALS: BP 140/78
[2018-07-05 06:30] VITALS: BP 128/78
--- NOTE | 2018-07-05 07:28 | PN- Orthopedic ---
See Addendum Subjective Subjective: No acute overnight events reported. Acknowledges pain with movement, otherwise comfortable. Has yet to ambulate. Denies chest pain, shortness of breath. Denies nausea and vomitting. Zamudio catheter in place. Objective Vital Signs and I&Os Vital Signs Date Time Temp Pulse Resp B/P B/P Pulse O2 O2 Flow FiO2 Mean Ox Delivery Rate 07/05 0630 98.6 72 20 128/78 96 Nasal 3.0L Cannula 07/05 0157 97.9 73 20 140/78 93 Nasal 3.0L Cannula 07/05 0000 Nasal 3.0L Cannula 07/04 2219 98.3 92 20 130/70 93 Nasal Cannula 07/04 1950 84 150/82 07/04 1800 98.0 95 20 138/74 93 Nasal Cannula 07/04 1604 97.3 76 20 132/70 91 Nasal Cannula 07/04 1600 Nasal 3.0L Cannula 07/04 1428 97.2 85 20 120/70 93 / 1126 Nasal 3.0L Cannula 07/04 1124 97.3 73 18 131/73 93 Nasal 3.0L Cannula Intake & Output 07/05 0800 08/07 0000 0806 1600 07/04 0800 08/ 0000 08/05 1600 Intake Total 800 420 785 Output Total 1300 750 225 Balance -500 -330 560 Intake, IV 600 300 225 Intake, Oral 200 120 560 Number 0 Bowel Movements Output, Urine 1300 750 225 Patient 167 lb Weight Physical Exam: General: Alert and oriented x3, no acute distress Cardiac: RRR, s1s2 Pulm: Nonlabored, rhonchi, clears with cough Abd: Nontender, non-distended Ext: Moves all extremities, neurovascular status grossly intact. Bilateral lower extremities with 2+ pitting edema. Bilateral calves soft and non-tender Surgical site: Left knee, dressing intact, full extension, no varus or valgus deformity Assessment/Plan Assessment/Plan This is a 68 year old male, POD 1, s/p L TKR -continue lasix today -dc iv fluids -dc zamudio cathter -OOB, wbat -diet as tolerated -bowel regimen: scheduled colace, prn senna -dvt ppx: eliquis to start this am, alps in place Will discuss plan of care with Dr. Polk Core Measures Venous Thromboembolism VTE Risk Factors Surgery No Mechanical VTE Prophylaxis d/t N/A MechProphylax Ordered No VTE Pharm Prophylaxis d/t NA PharmProphylax ordered
[2018-07-05 08:33] LABS: ABSOLUTE BASOPHIL COUNT 0 /CUMM (0.0-0.2); ABSOLUTE EOSINOPHIL COUNT 0 /CUMM (0.0-0.7); ABSOLUTE GRANULOCYTE CT 16.5 /CUMM (1.4-6.5); ABSOLUTE LYMPH COUNT 1.2 /CUMM (1.2-3.4); ABSOLUTE MONOCYTE COUNT 1.3 /CUMM (0.10-0.60); BASOPHIL % 0.2 % (0.0-2.0); EOSINOPHIL % 0 % (0-5); HEMATOCRIT 37.6 % (42-52); MEAN CORPUSCULAR HGB 28.1 PG (27.0-31.0); MEAN CORPUSCULAR HGB CONC 32.6 G/DL (33.0-37.0); MEAN CORPUSCULAR VOLUME 86.1 FL (80.0-94.0); MEAN PLATELET VOLUME 7.2 FL (7.4-10.4); RBC DISTRIBUTION WIDTH 15.1 % (11.5-14.5); RED BLOOD CELL CT 4.37 /CUMM (4.70-6.10)
[2018-07-05 09:11] LABS: GRANULOCYTE % 86.8 % (42.2-75.2); PLATELET COUNT 337 /CUMM (130-400)
--- NOTE | 2018-07-05 09:59 | Admission Core Measures ---
Acute Coronary Syndrome (CM) ACS Core Measures Acute Coronary Syndrome Diagnosis No Congestive Heart Failure (NEW) CHF Core Measures Congestive Heart Failure Diagnosis No Cerebrovascular Accident CVA Core Measures CVA/TIA Diagnosis No Venous Thromboembolism VTE Core Yadira (View Protocol) VTE Risk Factors Surgery No Mechanical VTE Prophylaxis d/t N/A MechProphylax Ordered No VTE Pharm Prophylaxis d/t NA PharmProphylax ordered Problem List As ranked by this Provider includes Assessment & Plan 1. Primary osteoarthritis of left knee HOME MEDS Home Med List Albuterol Sulfate (Proair Hfa) 90 MCG HFA.AER.AD 1-2 PUFF INH Q4-6 PRN LUNGS Amlodipine Besylate (Norvasc) 5 MG TABLET 1 TAB PO DAILY HEART HEALTH ( Reported) Aspirin (Children's Aspirin) 81 MG TAB.CHEW 1 TAB PO DAILY HEART HEALTH ( Reported) Cholecalciferol (Vitamin D3) (Vitamin D) 2,000 UNIT CAPSULE 1 CAP PO DAILY SUPPLEMENT (Reported) Finasteride 5 MG TABLET 1 TAB PO DAILY PROSTATE (Reported) Furosemide (Lasix) 20 MG TABLET 1 TAB PO DAILY leg swelling Metoprolol Tartrate (Lopressor) 50 MG TABLET 1 TAB PO BID HEART/BP (Reported) Multivitamin (Multiple Vitamins) 1 EACH TABLET 1 TAB PO DAILY VITAMIN SUPPORT (Reported) Simvastatin (Zocor*) 20 MG TABLET 1 TAB PO QPM CHOLESTEROL (Reported) Tiotropium [place] (Spiriva) 18 MCG CAP.W.DEV 1 CAP INH DAILY LUNGS
[2018-07-05 11:54] VITALS: BP 148/75
[2018-07-05] MEDS ORDERED: HYDROCODON-ACE1 EAC2 PO ×2 (13:25→19:17)
[2018-07-05] MEDS ORDERED: ELIQUIS2.5 M1 PO ×2 (13:25→19:17)
[2018-07-05] MEDS ORDERED: COLACE100 M1 PO (13:25)
[2018-07-05] MEDS ORDERED: DOCUSATE SODIU100 M3 PO (19:17)
== END 2018-07-05 19:41 | disposition home health service (06) | DRG 470 ==
LOC: SDA 02:11 → 2NA 02:11 → ENRESERV 10:16 → ENTRNSPT 10:58 → EDTRNSPT 11:00 → EDTRNSPTSTS 11:01 → 2NA 11:11 → CMPTRNSPT 11:24 → ENPENDDIS 07-05 13:45 → ENTRNSPT 07-05 19:01 → EDTRNSPTSTS 07-05 19:02 → EDTRNSPT 07-05 19:02 → CMPTRNSPT 07-05 19:16 → 2NA 07-05 19:41
PROVIDERS: Physician Assistant Surgical
PROC: 0SRD0J9 Replacement of Left Knee Joint with Synthetic Substitute, Cemented, Open Approach (ICD-10-PCS; principal; 2018-07-04)
PROC: 3E0T3BZ Introduction of Anesthetic Agent into Peripheral Nerves and Plexi, Percutaneous Approach (ICD-10-PCS; 2018-07-04)
DX: M17.12 Unilateral primary osteoarthritis, left knee (principal); J44.9 Chronic obstructive pulmonary disease, unspecified; I10 Essential (primary) hypertension; E78.5 Hyperlipidemia, unspecified; I25.10 Atherosclerotic heart disease of native coronary artery without angina pectoris; I25.2 Old myocardial infarction; Z98.1 Arthrodesis status; N40.0 Benign prostatic hyperplasia without lower urinary tract symptoms; G89.29 Other chronic pain; M54.9 Dorsalgia, unspecified; Z87.891 Personal history of nicotine dependence
CPT/HCPCS: 2NAP; 36592; 82436; 87086; 97110-GO; 97116-GO; 97161-GP; 97530-GO; C1713; J0131; J1100; J2405; J3370; J7040